=== PATIENT | female | born 1970 | race Caucasian/White ===

== ENCOUNTER 2016-10-01 02:17 | Inpatient (IN) | payer BC, OTHER ==
[~2016-10-01] VITALS: Ht 167.6 cm; Wt 94.1 kg
[2016-10-01 03:00] LABS: BASO % 0.3 % (0.0-1.0); EOS # 0.1 K/mm3 (0.0-0.50); EOS % 0.8 % (0.0-3.0); LARGE UNSTAINED CELL # 0.2 K/mm3 (0.0-0.4); LARGE UNSTAINED CELL % 1.5 % (0.0-4.0); LYMPH # 1.1 K/mm3 (1.5-4.5); LYMPH % 9.2 % (24.0-44.0); MEAN CORPUSCULAR HEMOGLOBIN 31.6 pg (27.0-33.0); MEAN CORPUSCULAR HGB CONC 33.8 g/dl (32.0-36.5); MEAN CORPUSCULAR VOLUME 93.5 fl (80.0-96.0); MONO # 0.4 K/mm3 (0.0-0.8); MONO % 2.9 % (0.0-5.0); NEUTROPHILS # 10.4 K/mm3 (1.8-7.7); NEUTROPHILS % 85.2 % (36.0-66.0); PLATELET COUNT, AUTOMATED 320 k/mm3 (150-450); WHITE BLOOD COUNT 12.2 K/mm3 (4.0-10.0)
[2016-10-01 03:22] LABS: ALBUMIN 3.7 GM/DL (3.2-5.2); ALBUMIN/GLOBULIN RATIO 1.12 (1.00-1.93); ALKALINE PHOSPHATASE 62 U/L (45-117); ALT/SGPT 20 U/L (12-78); AMYLASE 38 U/L (25-115); ANION GAP 9 MEQ/L (8-16); AST/SGOT 11 U/L (15-37); BILIRUBIN,DIRECT < 0.1 MG/DL (0.0-0.2); BILIRUBIN,TOTAL 0.3 MG/DL (0.2-1.0); BLOOD UREA NITROGEN 20 MG/DL (7-18); CALCIUM LEVEL 8.3 MG/DL (8.5-10.1); CARBON DIOXIDE LEVEL 26 MEQ/L (21-32); CHLORIDE LEVEL 110 MEQ/L (98-107); CREATININE FOR GFR 0.82 MG/DL (0.55-1.02); GLOMERULAR FILTRATION RATE > 60.0 (>58); GLUCOSE, FASTING 113 MG/DL (70-105); SODIUM LEVEL 145 MEQ/L (136-145)
[2016-10-01] MEDS ORDERED: HYDROmorphone HCL 1 MG/ML SYRINGE (J1170) As Ordered ONE ×2 (03:34→05:21)
[2016-10-01] MEDS ORDERED: ISOVUE-370 76% 100ML VIAL (Q9967) As Ordered ONE (04:04)
--- NOTE | 2016-10-01 04:50 | REPUSA ---
CLINICAL HISTORY: Abdominal pain. TECHNIQUE: Multiple axial, sagittal and coronal CT images were obtained through the abdomen and pelvi s after administration of intravenous contrast material. COMMENTS: Fluid filled distended stomach. Fluid-filled dilated proximal small bowels. Transition zone in the left lower quadrant. The liver is of uniform attenuation without mass or defect. There is no intra or extrahepatic biliary ductal dilatation. The spleen is normal. The gallbladder is within normal limits. The pancreas is of normal contour and attenuation characteristics. There is no evidence of adrenal mass. Both kidneys demonstrate prompt and equal nephrograms. The kidneys are normal in size, shape and conf iguration. There is no evidence of renal or ureteral mass. No renal or ureteral calculi are identifie d. There is no hydroureter or hydronephrosis. No evidence for appendicitis. There is no evidence of intrinsic or extrinsic bladder mass. There is small amount of free fluid in t he pelvis. Images of the lung bases show no evidence of pleural or parenchymal mass. There are no pleural effusi ons. The bony structures are free of lytic or blastic lesions. Multilevel degenerative changes are seen in volving the thoracolumbar spine. Scattered calcifications are seen involving the aorta and major bran ches compatible with atherosclerosis. IMPRESSION: Partial small bowel obstruction. Transition zone in the left lower quadrant. No bowel perforation or pneumatosis intestinalis. Small amount of free fluid in the pelvis. Thank you for your kind referral of this patient.
[2016-10-01] MEDS ORDERED: METH2.5TA PO (05:16)
[2016-10-01] MEDS ORDERED: FOLI1TAB2 PO (05:16)
[2016-10-01] MEDS ORDERED: ZITHTAB PO (05:16)
[2016-10-01] MEDS ORDERED: ONDANSETRON 4MG/2ML VIAL (J2405) IV PRN (07:00)
[2016-10-01] MEDS ORDERED: ACETAMINOPHEN TAB 650MG DOSE (2X325MG) PO PRN (07:00)
[2016-10-01] MEDS ORDERED: NORCO, ANEXSIA 5/325MG TABLET (HYDROcodone/ACETAMINOPHEN) PO PRN ×2 (07:00)
[2016-10-01] MEDS ORDERED: MORPHINE 4 MG/ML 1ML SYRINGE IV PRN (07:00)
--- NOTE | 2016-10-01 08:24 | EDDOCDS ---
Nurse's Notes [facility] Name: Bolivar Curran Age: 46 yrs Sex: Female : 1970 Arrival Date: 10/01/2016 Time: 02:17 Bed 10 Private MD: Diagnosis: Other and unspecified intestinal obstruction Presentation: 10/01 02:20 Presenting complaint: Patient states: Patient reports abdominal pain in right upper jmb quadrant. Patient reports having abdominal pain for a few hours. Patient denies eating or drinking prior to pain initiation. Risk factors: the patient reports no vaginal bleeding. Adult Sepsis Screening: The patient does not have new or worsening altered mentation. Patient's respiratory rate is less than 22. Systolic blood pressure is greater than 100. Patient has a qSOFA score of 0- Negative Sepsis Screen. Suicide/Homicide risk assessment- the patient denies having any suicidal and/or homicidal ideations and does not present with any other emotional, behavioral or mental health complaints. Status: Patient is not a technical services rep or dependent. Transition of care: patient was not received from another setting of care. 02:20 Acuity: GERTRUDE Level 3 jmb 02:20 Method Of Arrival: Walkin/Carried/Asstd jmb Triage Assessment: 02:24 General: Appears uncomfortable, Behavior is restless. Pain: Location: abdomen Pain [facility] currently is 10 out of 10 on a pain scale. HIV screening NA for this visit Offered previously. Neurological: Level of Consciousness is awake, alert, obeys commands, Oriented to person, place, time. Respiratory: Airway is patent Respiratory effort is even, unlabored, Respiratory pattern is regular, symmetrical. GI: Abdomen is non- distended. Derm: Skin is pink, warm & dry. Musculoskeletal: Range of motion intact in all extremities. 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 folic acid 1 mg Oral tab 1 tab once daily 2. azithromycin 1 gram Oral pack 1 packet just finished 3. methotrexate sodium 15 mg oral tab 1 tab once wkly - PMHx: Psoriasis; Ulcers; - PSHx: partial hysterectomy; - Social history: Smoking status: Patient states former smoker of tobacco. No barriers to communication noted, The patient speaks fluent [place], Speaks appropriately for age. - Family history: Not pertinent. - : The pt / caregiver states he / she is not on anticoagulants. Home medication list is obtained from the patient. - Exposure Risk Screening:: None identified. Screenin:49 Screening information is obtained from the patient. Fall risk: No risks identified. kas2 Assistance ADL's: requires no assistance with activities of daily living. Abuse/DV Screen: The patient / caregiver reports he/she is: not in a situation that causes fear, pain or injury. Nutritional screening: No deficits noted. Advance Directives: Currently, there is no health care proxy. There is no active DNR order. There is no living will. There is no Power of Car Sales Associate. home support is adequate. Assessment: 02:43 General: Appears in no apparent distress, uncomfortable, well nourished, well groomed, kas2 Behavior is appropriate for age, cooperative. Pain: Location: abdomen Pain currently is 9 out of 10 on a pain scale. Neurological: Level of Consciousness is awake, alert, Oriented to person, place, time. Cardiovascular: Capillary refill < 3 seconds Heart tones S1 S2 present Rhythm is sinus rhythm No ectopy. Respiratory: Airway is patent Respiratory effort is even, unlabored, Respiratory pattern is regular, symmetrical, Breath sounds are clear bilaterally. GI: Abdomen is flat, non- distended Bowel sounds present X 4 quads. Abd is soft X 4 quads Abd is tender to palpation X 4 quads. Derm: Skin is intact, is healthy with good turgor, Skin is dry, Skin is pink, warm & dry. Skin temperature is warm. 03:20 General: Patient gone to CT scan via stretcher with tech.. kas2 03:50 General: Patient back from CT scan via stretcher with RN. Resettled in bed. No kas2 complaints of pain at this time. Patient states she is pain free. Appears comfortable. at bedside. Call irby within reach. Will continue to monitor.. 04:45 General: Dr. Hennessy in to talk with patient about results of CT scan.. kas2 05:31 General: RN inserted NG tube 16 Fr at 55 cm. Hooked up to low wall suction. Good return kas2 of yellow colored bile. Patient tolerated procedure well. Sitting up in bed with at bedside. Appears much more comfortable at this time.. 06:30 General: Patient sitting up in bed at this time with at bedside. No apparent kas2 distress. Patient states she is comfortable. Airway is patent. Respiratory pattern is even and unlabored. NG tube remains in place and is to low wall suction at this time. Call irby within reach. Will continue to monitor.. 07:03 General: Appears in no apparent distress, Behavior is appropriate for age, cooperative. pml Pain: Pain currently is 5 out of 10 on a pain scale. Neurological: Level of Consciousness is awake, alert, Oriented to person, place, time. Cardiovascular: Capillary refill < 3 seconds. Respiratory: Airway is patent Respiratory effort is even, unlabored. GI: Abdomen is non- distended NGT in place, to suction. draining yellow bile. Derm: Skin is pink, warm & dry. 08:21 General: Appears in no apparent distress, Behavior is appropriate for age, cooperative. pml Pain: Location: abdomen Pain currently is 5 out of 10 on a pain scale. Neurological: Level of Consciousness is awake, alert, Oriented to person, place, time. Cardiovascular: Capillary refill < 3 seconds Rhythm is sinus rhythm No ectopy. GI: Abdomen is flat, non- distended NGT in place, to suction. Derm: Skin is pink, warm & dry. Vital Signs: 02:25 BP 156 / 72; Pulse 67; Resp 18; Temp 97.6(O); Pulse Ox 99% on R/A; Weight 92.53 kg (R); [facility] Height 5 ft. 6 in. (167.64 cm) (R); 04:16 BP 138 / 68; Pulse 65; Resp 18; Pulse Ox 99% on R/A; Pain 0/10; kas2 06:32 BP 149 / 74; Pulse 68; Resp 20; Temp 98.1(O); Pulse Ox 99% on R/A; Pain 0/10; kas2 08:15 BP 129 / 73; Pulse 62; Resp 18; Temp 99.3(O); Pulse Ox 98% on R/A; Pain 3/10; jrd 02:25 Body Mass Index 32.93 (92.53 kg, 167.64 cm) [facility] Vitals: 02:25 Log In Time: October 01, 2016 at 02:19. [facility] ED Course: 02:18 Patient visited by Jordyn Walters, Reg. hs2 02:18 Patient moved to Waiting hs2 02:21 Triage Initiated b 02:28 Krystle Constantino RN is Primary Nurse. jmb 02:28 Patient moved to 10 jmb 02:31 Patient visited by Krystle Constantino RN. kas2 02:52 Jono Hennessy DO is Attending Physician. cs11 02:52 Patient visited by Jono Hennessy DO. cs11 02:53 CBC with Diff Sent. kas2 02:53 MED Profile Sent. kas2 02:53 Liver Profile Sent. kas2 02:53 Amylase Sent. kas2 02:53 Lipase Sent. kas2 02:53 Inserted saline lock: 20 gauge in left antecubital area and blood collected. The kas2 patient tolerated the procedure well. No procedures done that require assistance. 03:27 Patient visited by Krystle Constantino RN. kas2 03:46 Patient visited by Krystle Constantino RN. kas2 04:16 Patient visited by Krystle Constantino RN. kas2 04:39 [facility] Payment Agreement was scanned into [employer] and attached to record. pm4 04:50 CT ABD & PELVIS: IV Contrast Only Returned. EDMS 05:17 Patient visited by Kyrstle Constantino RN. kas2 05:24 NGT inserted 18 Fr. via right nare. Placement verified. Returned gastric contents. to nn1 intermittent suction. Returned gastric contents. Patient tolerated well. 05:34 Patient visited by Krystle Constantino RN. kas2 06:00 Patient visited by Krystle Constantino RN. kas2 06:33 Patient visited by Krystle Constantino RN. kas2 06:41 Deacon Clayton MD is Hospitalizing Provider. cs11 07:03 The patient / caregiver is instructed regarding the plan of care and ED course. Patient pml has correct armband on for positive identification. Placed in gown. Bed in low position. Call light in reach. Side rails up X2. 07:05 Patient visited by Falguni Gonzales RN. pml 07:09 Primary Nurse role handed off by Krystle Constantino RN deg 07:40 T-Sheet-- Draft Copy was scanned into [employer] and attached to record. seh 08:15 Patient visited by Naren Bearden PCA. ismael 08:16 Patient visited by Naren Bearden PCA. ismael Administered Medications: 03:45 Drug: NS 0.9% 1000 ml [sodium chloride 0.9 % intravenous solution] Route: IV; Rate: kas2 bolus; Site: left antecubital; 03:46 Drug: Dilaudid - HYDROmorphone 1 mg [hydromorphone 1 mg/mL injection syringe (1 mL)] kas2 Route: IVP; Site: left antecubital; 04:16 Follow up: BP 138 / 68; Pulse 65 bpm; Resp 18 bpm; Pulse Ox 99% RA; Pain 0/10 Adult; kas2 Response: No Adverse Reaction; Pain is decreased 05:27 Drug: Dilaudid - HYDROmorphone 0.5 mg [hydromorphone 1 mg/mL injection syringe (0.5 kas2 mL)] Route: IVP; Site: left antecubital; 07:00 Follow up: Response: Pain is decreased pml Order Results: Lab Order: CBC with Diff; SPEC'M 10/01/16 02:42 Test: WHITE BLOOD COUNT; Value: 12.2; Range: 4.0-10.0; Abnormal: Above high normal; Units: K/mm3; Status: F Test: RED BLOOD COUNT; Value: 4.86; Range: 4.00-5.40; Units: M/mm3; Status: F Test: HEMOGLOBIN; Value: 15.4; Range: 12.0-16.0; Units: g/dl; Status: F Test: HEMATOCRIT; Value: 45.4; Range: 36.0-47.0; Units: %; Status: F Test: MEAN CORPUSCULAR VOLUME; Value: 93.5; Range: 80.0-96.0; Units: fl; Status: F Test: MEAN CORPUSCULAR HEMOGLOBIN; Value: 31.6; Range: 27.0-33.0; Units: pg; Status: F Test: MEAN CORPUSCULAR HGB CONC; Value: 33.8; Range: 32.0-36.5; Units: g/dl; Status: F Test: RED CELL DISTRIBUTION WIDTH; Value: 13.0; Range: 11.5-14.5; Units: %; Status: F Test: PLATELET COUNT, AUTOMATED; Value: 320; Range: 150-450; Units: k/mm3; Status: F Test: NEUTROPHILS %; Value: 85.2; Range: 36.0-66.0; Abnormal: Above high normal; Units: %; Status: F Test: LYMPH %; Value: 9.2; Range: 24.0-44.0; Abnormal: Below low normal; Units: %; Status: F Test: MONO %; Value: 2.9; Range: 0.0-5.0; Units: %; Status: F Test: EOS %; Value: 0.8; Range: 0.0-3.0; Units: %; Status: F Test: BASO %; Value: 0.3; Range: 0.0-1.0; Units: %; Status: F Test: LARGE UNSTAINED CELL %; Value: 1.5; Range: 0.0-4.0; Units: %; Status: F Test: NEUTROPHILS #; Value: 10.4; Range: 1.8-7.7; Abnormal: Above high normal; Units: K/mm3; Status: F Test: LYMPH #; Value: 1.1; Range: 1.5-4.5; Abnormal: Below low normal; Units: K/mm3; Status: F Test: MONO #; Value: 0.4; Range: 0.0-0.8; Units: K/mm3; Status: F Test: EOS #; Value: 0.1; Range: 0.0-0.50; Units: K/mm3; Status: F Test: BASO #; Value: 0.0; Range: 0.0-0.2; Units: K/mm3; Status: F Test: LARGE UNSTAINED CELL #; Value: 0.2; Range: 0.0-0.4; Units: K/mm3; Status: F Lab Order: MED Profile; SPEC'M 10/01/16 02:42 Test: GLUCOSE, FASTING; Value: 113; Range: 70-105; Abnormal: Above high normal; Units: MG/DL; Status: F Test: BLOOD UREA NITROGEN; Value: 20; Range: 7-18; Abnormal: Above high normal; Units: MG/DL; Status: F Test: CREATININE FOR GFR; Value: 0.82; Range: 0.55-1.02; Units: MG/DL; Status: F Test: GLOMERULAR FILTRATION RATE; Value: > 60.0; Range: >58; Status: F Test: SODIUM LEVEL; Value: 145; Range: 136-145; Units: MEQ/L; Status: F Test: POTASSIUM SERUM; Value: 4.0; Range: 3.5-5.1; Units: MEQ/L; Status: F Test: CHLORIDE LEVEL; Value: 110; Range: 98-107; Abnormal: Above high normal; Units: MEQ/L; Status: F Test: CARBON DIOXIDE LEVEL; Value: 26; Range: 21-32; Units: MEQ/L; Status: F Test: ANION GAP; Value: 9; Range: 8-16; Units: MEQ/L; Status: F Test: CALCIUM LEVEL; Value: 8.3; Range: 8.5-10.1; Abnormal: Below low normal; Units: MG/DL; Status: F Test Note: ; Units are mL/min/1.73 m2 Chronic Kidney Disease Staging per NKF: Stage I & II GFR >=60 Normal to Mildly Decreased Stage III GFR 30-59 Moderately Decreased Stage IV GFR 15-29 Severely Decreased Stage V GFR <15 Very Little GFR Left ESRD GFR <15 on PAYABLE PROCESSOR Lab Order: Liver Profile; SPEC'M 10/01/16 02:42 Test: AST/SGOT; Value: 11; Range: 15-37; Abnormal: Below low normal; Units: U/L; Status: F Test: ALT/SGPT; Value: 20; Range: 12-78; Units: U/L; Status: F Test: ALKALINE PHOSPHATASE; Value: 62; Range: 45-117; Units: U/L; Status: F Test: BILIRUBIN,TOTAL; Value: 0.3; Range: 0.2-1.0; Units: MG/DL; Status: F Test: BILIRUBIN,DIRECT; Value: < 0.1; Range: 0.0-0.2; Units: MG/DL; Status: F Test: TOTAL PROTEIN; Value: 7.0; Range: 6.4-8.2; Units: GM/DL; Status: F Test: ALBUMIN; Value: 3.7; Range: 3.2-5.2; Units: GM/DL; Status: F Test: ALBUMIN/GLOBULIN RATIO; Value: 1.12; Range: 1.00-1.93; Status: F Lab Order: Amylase; SPEC'M 10/01/16 02:42 Test: AMYLASE; Value: 38; Range: 25-115; Units: U/L; Status: F Lab Order: Lipase; SPEC'M 10/01/16 02:42 Test: LIPASE; Value: 131; Range: 73-393; Units: U/L; Status: F Lab Order: Urinalysis; SPEC'M 10/01/16 05:24 Test: APPEARANCE, URINE; Value: CLEAR; Range: CLEAR; Status: F Test: COLOR, URINE; Value: YELLOW; Range: YELLOW; Status: F Test: PH,URINE; Value: 6.0; Range: 5.0-9.0; Units: UNITS; Status: F Test: SPECIFIC GRAVITY URINE AUTO; Value: >1.060; Range: 1.002-1.035; Abnormal: Above high normal; Status: F Test: PROTEIN, URINE AUTO; Value: NEGATIVE; Range: NEGATIVE; Units: mg/dL; Status: F Test: GLUCOSE, URINE (UA) AUTO; Value: NEGATIVE; Range: NEGATIVE; Units: mg/dL; Status: F Test: KETONE, URINE AUTO; Value: NEGATIVE; Range: NEGATIVE; Units: mg/dL; Status: F Test: UROBILINOGEN, URINE AUTO; Value: 0.2; Range: 0.0-2.0; Units: mg/dL; Status: F Test: BILIRUBIN, URINE AUTO; Value: NEGATIVE; Range: NEGATIVE; Status: F Test: NITRITE, URINE AUTO; Value: NEGATIVE; Range: NEGATIVE; Status: F Test: LEUKOCYTE ESTERASE, URINE AUTO; Value: NEGATIVE; Range: NEGATIVE; Status: F Test: BLOOD, URINE BLOOD; Value: NEGATIVE; Range: NEGATIVE; Status: F Test: WBC, URINE AUTO; Value: 0; Range: 0-3; Units: /HPF; Status: F Test: RBC, URINE AUTO; Value: 2; Range: 0-3; Units: /HPF; Status: F Test: BACTERIA, URINE AUTO; Value: 1+; Range: NEGATIVE; Abnormal: Above high normal; Status: F Test: SQUAMOUS EPITHELIAL CELL UR AU; Value: 7; Range: 0-6; Units: /HPF; Status: F Test: MUCUS, URINE; Value: SMALL; Range: NEGATIVE; Status: F Test: HYALINE CAST, URINE AUTO; Value: 0; Range: 0-1; Units: /LPF; Status: F Radiology Order: CT ABD & PELVIS: IV Contrast Only Test: CT ABD & PELVIS: IV Contrast Only REASON FOR EXAMINATION: Abdomen Pain; ; CLINICAL HISTORY: Abdominal pain.; TECHNIQUE: Multiple axial, sagittal and coronal CT images were obtained through the abdomen and pelvi; s after administration of intravenous contrast material.; COMMENTS:; Fluid filled distended stomach.; Fluid-filled dilated proximal small bowels.; Transition zone in the left lower quadrant.; The liver is of uniform attenuation without mass or defect. There is no intra or extrahepatic biliary; ductal dilatation. The spleen is normal. The gallbladder is within normal limits. The pancreas is of; normal contour and attenuation characteristics. There is no evidence of adrenal mass.; Both kidneys demonstrate prompt and equal nephrograms. The kidneys are normal in size, shape and conf; iguration. There is no evidence of renal or ureteral mass. No renal or ureteral calculi are identifie; d. There is no hydroureter or hydronephrosis.; No evidence for appendicitis.; There is no evidence of intrinsic or extrinsic bladder mass. There is small amount of free fluid in t; he pelvis.; Images of the lung bases show no evidence of pleural or parenchymal mass. There are no pleural effusi; ons.; The bony structures are free of lytic or blastic lesions. Multilevel degenerative changes are seen in; volving the thoracolumbar spine. Scattered calcifications are seen involving the aorta and major bran; ches compatible with atherosclerosis.; IMPRESSION:; Partial small bowel obstruction.; Transition zone in the left lower quadrant.; No bowel perforation or pneumatosis intestinalis.; Small amount of free fluid in the pelvis.; Thank you for your kind referral of this patient.; ; Outcome: 06:42 Decision to Hospitalize by Provider. cs11 08:21 Discharge Assessment: Patient awake, alert and oriented x 3. No cognitive and/or pml functional deficits noted. Patient verbalized understanding of disposition instructions. patient administered narcotics - yes. Patient was admitted to the hospital or transferred to another facility. The following High Risk Discharge criteria are identified: None. Admitted to Pediatrics accompanied by tech, via wheelchair, with chart. Condition: stable. CT Study completed. Admission hand-off: Report called to [facility]. Property :Personal belongings accompany Pt. 08:23 Patient left the ED. pml Signatures: Dispatcher [employer] EDMS Maribell Barrios, Data Assistant Unit deg Falguni GonzalesRN RN pml Jono Hennessy, DO cs11 Shadi Daniels RN RN jmb Naren Bearden, PLASTER AND STUCCO WORKER PLASTER AND STUCCO WORKER jrd Ragini Tyson RN RN nn1 Jordyn Walters, Reg Reg hs2 Krystle Constantino RN RN [facility]2 Guerita Marin se Herbert Diaz, Reg Reg pm4 Corrections: (The following items were deleted from the chart) 08:16 08:15 BP 129 / 73; Pulse 58bpm; Resp 16bpm; Pulse Ox 98% RA; Temp 99.3F Oral; Pain jrd 10; jrd MTDD
--- NOTE | 2016-10-01 08:24 | EDDOCDS ---
Physician Documentation [facility] Name: Bolivar Curran Age: 46 yrs Sex: Female : 1970 Arrival Date: 10/01/2016 Time: 02:17 Bed 10 Private MD: Disposition: 10/01/16 06:42 Hospitalization ordered by Deacon Clayton for Inpatient Admission. Preliminary diagnosis is Other and unspecified intestinal obstruction. - Bed requested for M PED. - Status is Inpatient Admission. pml - Condition is Stable. - Problem is new. - Symptoms have improved. Historical: - Allergies: No known drug Allergies; - Home Meds: 1. folic acid 1 mg Oral tab 1 tab once daily 2. azithromycin 1 gram Oral pack 1 packet just finished 3. methotrexate sodium 15 mg oral tab 1 tab once wkly - PMHx: Psoriasis; Ulcers; - PSHx: partial hysterectomy; - Social history: Smoking status: Patient states former smoker of tobacco. No barriers to communication noted, The patient speaks fluent Albanian, Speaks appropriately for age. - Family history: Not pertinent. - : The pt / caregiver states he / she is not on anticoagulants. Home medication list is obtained from the patient. - Exposure Risk Screening:: None identified. MANAGER DOCUMENTATION: 10/01 02:25 LMP N/A - Hysterectomy [facility] Vital Signs: 02:25 BP 156 / 72; Pulse 67; Resp 18; Temp 97.6(O); Pulse Ox 99% on R/A; Weight 92.53 kg / jmb 203.99 lbs (R); Height 5 ft. 6 in. (167.64 cm) (R); 04:16 BP 138 / 68; Pulse 65; Resp 18; Pulse Ox 99% on R/A; Pain 0/10; kas2 06:32 BP 149 / 74; Pulse 68; Resp 20; Temp 98.1(O); Pulse Ox 99% on R/A; Pain 0/10; kas2 08:15 BP 129 / 73; Pulse 62; Resp 18; Temp 99.3(O); Pulse Ox 98% on R/A; Pain 3/10; jrd 02:25 Body Mass Index 32.93 (92.53 kg, 167.64 cm) [facility] MDM: 02:52 IV Saline Lock ordered. cs11 02:53 CBC with Diff Ordered. EDMS 02:53 MED Profile Ordered. EDMS 02:53 Liver Profile Ordered. EDMS 02:53 Amylase Ordered. EDMS 02:53 Lipase Ordered. EDMS 02:53 Urinalysis Ordered. EDMS 02:53 Urine Culture Ordered. EDMS 03:32 NS 0.9% 1000 ml IV at bolus once ordered. cs11 03:32 Dilaudid - HYDROmorphone 1 mg IVP once ordered. cs11 03:38 CBC with Diff Reviewed. cs11 03:38 MED Profile Reviewed. cs11 03:38 Liver Profile Reviewed. cs11 03:38 Amylase Reviewed. cs11 03:38 Lipase Reviewed. cs11 03:58 CT ABD & PELVIS: IV Contrast Only Ordered. EDMS 04:17 Financial registration complete. pm4 04:39 [facility] Payment Agreement was scanned into [employer] and attached to record. pm4 04:53 NG/OG Tube 18Fr to L.I.S. with hourly monitoring for placement ordered. cs11 05:00 BED REQUEST+ADM ordered. EDMS 05:05 Dilaudid - HYDROmorphone 0.5 mg IVP once ordered. cs11 07:01 Admission / Observation Status ordered. EDMS 07:01 NPO DIET ordered. EDMS 07:40 T-Sheet-- Draft Copy was scanned into [employer] and attached to record. [facility] Administered Medications: 03:45 Drug: NS 0.9% 1000 ml [sodium chloride 0.9 % intravenous solution] Route: IV; Rate: kas2 bolus; Site: left antecubital; 03:46 Drug: Dilaudid - HYDROmorphone 1 mg [hydromorphone 1 mg/mL injection syringe (1 mL)] kas2 Route: IVP; Site: left antecubital; 04:16 Follow up: BP 138 / 68; Pulse 65 bpm; Resp 18 bpm; Pulse Ox 99% RA; Pain 0/10 Adult; kas2 Response: No Adverse Reaction; Pain is decreased 05:27 Drug: Dilaudid - HYDROmorphone 0.5 mg [hydromorphone 1 mg/mL injection syringe (0.5 kas2 mL)] Route: IVP; Site: left antecubital; 07:00 Follow up: Response: Pain is decreased pml Signatures: Dispatcher [employer] EDMO Falguni Gonzales RN Jono Benitez, DO cs11 Shadi DanielsRN Allie Ram RN GANESH Marin, Guerita Herbert Gusman, Reg Reg pm4 Krystle Constantino RN kas2 The chart was reviewed and I authenticate all verbal orders and agree with the evaluation and treatment provided.Attachments: 04:39 [facility] Payment Agreement pm4 07:40 T-Sheet-- Draft Copy [facility] MTDD
[2016-10-01 08:35] VITALS: BP 158/84
[2016-10-01] MEDS: LR 1,000 ML IV SCH ×3 (09:19→22:55)
[2016-10-01] MEDS: ENOXAPARIN 40 MG/0.4 ML SYRINGE (J1650) SC SCH (09:20)
[2016-10-01] MEDS: PANTOPRAZOLE 40MG INJ (PROTONIX) (C9113) IV SCH (09:33)
--- NOTE | 2016-10-01 14:08 | HPE ---
DATE OF ADMISSION: 10/01/2016 CHIEF COMPLAINT: Abdominal pain. HISTORY OF PRESENT ILLNESS: Ms. Curran is a 46-year-old female who presented herself to the emergency department late last night with complaints of about a 2-day history of ongoing midepigastric pain. The patient reports a nearly chronic history of epigastric and periumbilical pain that comes on and off. Initially, she was being treated for possibly gastritis with omeprazole, this worsened. Last month, her primary care doctor did some serology, which turned out to be positive for Helicobacter pylori (H pylori), was treated with 2 weeks of antibiotics. She reports transient improvement of the pain and discomfort. She is seeing someone to do an upper endoscopy. This current episode started evening; the patient had the same crampiness evening while at work. By the following morning, this improved. At about the afternoon Monday, started coming back, getting worse and steady. She had one episode of vomiting. She denies any sick contacts. She denies any prior episodes of similar symptoms. No prior episodes of any mechanical blockage. Due to the unrelenting pain, she presented herself to the emergency department, was described by the emergency room physician as was in severe pain, writhing in pain when she arrived. She did have a regular bowel movement Monday morning. ALLERGIES: No known drug allergies. HOME MEDICATIONS: - folic acid 1 mg tablet once daily - azithromycin one packet which she just finished - methotrexate 50 mg tablet one tablet once weekly PAST MEDICAL HISTORY: Includes psoriasis, a suspicion for gastritis. PAST SURGICAL HISTORY: Includes a partial hysterectomy with vaginal sling. SOCIAL HISTORY: The patient denies smoking, alcohol use or recreational drug use. FAMILY HISTORY: Not pertinent. EXPOSURE HISTORY: Denies any sick contacts or overseas travel. REVIEW OF SYSTEMS: The patient reports chronic intermittent upper quadrant pain. Denies any ongoing associated weight loss. Denies anorexia. The patient denies any chronic headaches, seizures, strokes. She denies any problems with vision or hearing. Denies any problems with swallowing. Denies hoarseness of her voice. She denies any neck pains. She denies any chest pains, palpitations, paroxysmal nocturnal dyspnea, orthopnea. The patient denies any shortness of breath or wheezing. Gastrointestinal symptoms enumerated in the history of the present illness. The patient denies dysuria, hematuria, nocturia. She denies any history of diabetes. Denies polydipsia, polyphagia, polyuria. Denies thyroid problems. She denies any bleeding or clotting disorder. She denies any severe psychiatric impairment. EXAMINATION: Vital signs on arrival at 2 o'clock in the morning, blood pressure 156/72, pulse rate of 67, respiratory rate of 18, temperature of 97.6, pulse oximetry reading 99% on room air. Weight is 92.5 kg, height 167 cm, body mass index (BMI) 32.9. Patient seen, a nasogastric tube has been placed, seems to be adequate placement. Only a small amount in the cannister, reportedly about 400 mL were emptied out initially on insertion. She is mildly obese. Skin is warm and dry. Lips appear mildly dry. She is normocephalic, atraumatic, has a pink palpebral conjunctivae. Anicteric sclerae. Neck is short but supple. No obvious thyromegaly. No chest wall abnormalities. Lung sounds are clear to auscultation bilaterally. No wheezing appreciated. Heart: Rate and rhythm are regular with no murmurs. Abdomen is mildly rounded but soft, very minimally distended, if at all. She does have active bowel sounds. Tested the nasogastric tube, seems to be in adequate position. Mild tenderness over the epigastric area. No rebound or guarding. No hepatosplenomegaly. No umbilical or groin herniations appreciated. No extremity edema appreciated. No deformities. LABORATORY: White cell count 12.2, hemoglobin 15.4, hematocrit 45.4, plate count is 320, neutrophils are 85%. Chemistry: Sodium 145, potassium 4.0, chloride is 110, CO2 is 26, BUN of 20, creatinine 0.8, glucose is 113. Liver function tests (LFTs) are normal. Albumin is 3.7, amylase 38, lipase of 131. CT of the abdomen and pelvis was performed. This was done with contrast, shows partial small bowel obstruction, transition zone in the left lower quadrant. No bowel perforation or pneumatosis intestinalis, small amount of free fluid in the pelvis. IMPRESSION: Small bowel obstruction, probably secondary to adhesions from her previous surgery. No signs or symptoms of threatened bowel. The patient improved with nasogastric tube decompression. PLAN: Continue with IV fluid hydration, continue with nasogastric tube decompression. I had a long talk with the and the patient regarding what mechanical bowel obstruction means and how this is treated. Normally bowel decompression for the next couple of days and see if this resolves by itself. This is her first bout of bowel obstruction. She has a high chance of this resolving by itself. Right now, there is no signs of threatened bowel, so no urgency to go in and do lysis of adhesions. She also gives a history of possible chronic gastritis. I will place her on some IV Protonix. I reviewed her medication; she is on methotrexate for psoriasis, no other medications reported except for the folic acid. We will do serial examinations and recheck her labs as well as an x-ray in the morning.
[2016-10-01 16:00] VITALS: BP 132/83
[2016-10-01 20:00] VITALS: BP 126/69
[2016-10-02 04:00] VITALS: BP 132/85
[2016-10-02] MEDS: LR 1,000 ML IV SCH (04:17)
[2016-10-02 07:05] LABS: BASO % 0.6 % (0.0-1.0); EOS # 0.3 K/mm3 (0.0-0.50); EOS % 2.8 % (0.0-3.0); LARGE UNSTAINED CELL # 0.3 K/mm3 (0.0-0.4); LARGE UNSTAINED CELL % 3.2 % (0.0-4.0); LYMPH # 1.8 K/mm3 (1.5-4.5); LYMPH % 18.9 % (24.0-44.0); MEAN CORPUSCULAR HEMOGLOBIN 31.6 pg (27.0-33.0); MEAN CORPUSCULAR HGB CONC 33.3 g/dl (32.0-36.5); MONO # 0.4 K/mm3 (0.0-0.8); MONO % 4.5 % (0.0-5.0); NEUTROPHILS # 6.7 K/mm3 (1.8-7.7); PLATELET COUNT, AUTOMATED 290 k/mm3 (150-450); RED CELL DISTRIBUTION WIDTH 13.1 % (11.5-14.5); WHITE BLOOD COUNT 9.5 K/mm3 (4.0-10.0)
[2016-10-02 07:14] LABS: ANION GAP 7 MEQ/L (8-16); BLOOD UREA NITROGEN 13 MG/DL (7-18); CARBON DIOXIDE LEVEL 27 MEQ/L (21-32); CHLORIDE LEVEL 110 MEQ/L (98-107); CREATININE FOR GFR 0.62 MG/DL (0.55-1.02); GLOMERULAR FILTRATION RATE > 60.0 (>58); GLUCOSE, FASTING 86 MG/DL (70-105); POTASSIUM SERUM 3.6 MEQ/L (3.5-5.1); SODIUM LEVEL 144 MEQ/L (136-145)
[2016-10-02 08:00] VITALS: BP 138/94
--- NOTE | 2016-10-02 09:24 | REP ---
Clinical: Follow up small bowel obstruction. Technique: Upright view of the chest with supine and upright views of the abdomen and pelvis. Findings: Frontal upright view of the chest demonstrates no acute cardiopulmonary process or free air below the diaphragm to suspect pneumoperitoneum. Nasogastric tube extends into the left upper quadrant. Supine and upright views of the abdomen and pelvis demonstrate nonspecific bowel gas pattern without obstruction or perforation. No organomegaly. No abnormal calcifications. Skeletal structures normal for age. Impression: Nonspecific bowel gas pattern. Signed by Gonzales Blackmon MD 10/02/2016 09:15 A
[2016-10-02] MEDS: PANTOPRAZOLE 40MG INJ (PROTONIX) (C9113) IV SCH (09:41)
[2016-10-02] MEDS: ENOXAPARIN 40 MG/0.4 ML SYRINGE (J1650) SC SCH (09:41)
[2016-10-02 12:00] VITALS: BP 156/85
[2016-10-02 16:00] VITALS: BP 128/78
[2016-10-02 20:00] VITALS: BP 131/59
[2016-10-03 04:00] VITALS: BP 120/74
[2016-10-03 07:03] LABS: BASO % 0.5 % (0.0-1.0); EOS # 0.2 K/mm3 (0.0-0.50); LARGE UNSTAINED CELL # 0.3 K/mm3 (0.0-0.4); LARGE UNSTAINED CELL % 3.4 % (0.0-4.0); LYMPH # 1.2 K/mm3 (1.5-4.5); LYMPH % 14.6 % (24.0-44.0); MEAN CORPUSCULAR HEMOGLOBIN 31.9 pg (27.0-33.0); MEAN CORPUSCULAR HGB CONC 33.7 g/dl (32.0-36.5); MEAN CORPUSCULAR VOLUME 94.4 fl (80.0-96.0); MONO # 0.4 K/mm3 (0.0-0.8); MONO % 5.3 % (0.0-5.0); NEUTROPHILS # 5.9 K/mm3 (1.8-7.7); NEUTROPHILS % 73.3 % (36.0-66.0); PLATELET COUNT, AUTOMATED 258 k/mm3 (150-450); RED CELL DISTRIBUTION WIDTH 13.1 % (11.5-14.5); WHITE BLOOD COUNT 8.1 K/mm3 (4.0-10.0)
[2016-10-03 07:11] LABS: ANION GAP 7 MEQ/L (8-16); BLOOD UREA NITROGEN 11 MG/DL (7-18); CALCIUM LEVEL 8.4 MG/DL (8.5-10.1); CARBON DIOXIDE LEVEL 28 MEQ/L (21-32); CHLORIDE LEVEL 108 MEQ/L (98-107); CREATININE FOR GFR 0.64 MG/DL (0.55-1.02); GLOMERULAR FILTRATION RATE > 60.0 (>58); GLUCOSE, FASTING 86 MG/DL (70-105); POTASSIUM SERUM 4.1 MEQ/L (3.5-5.1); SODIUM LEVEL 143 MEQ/L (136-145)
[2016-10-03 08:00] VITALS: BP 114/68
--- NOTE | 2016-10-03 09:24 | EDDOCDS ---
Physician Documentation [facility] Name: Bolivar Curran Age: 46 yrs Sex: Female : 1970 Arrival Date: 10/01/2016 Time: 02:17 Bed 10 Private MD: Disposition: 10/01/16 06:42 Hospitalization ordered by Deacon Clayton for Inpatient Admission. Preliminary diagnosis is Other and unspecified intestinal obstruction. - Bed requested for M PED. - Status is Inpatient Admission. pml - Condition is Stable. - Problem is new. - Symptoms have improved. Historical: - Allergies: No known drug Allergies; - Home Meds: 1. folic acid 1 mg Oral tab 1 tab once daily 2. azithromycin 1 gram Oral pack 1 packet just finished 3. methotrexate sodium 15 mg oral tab 1 tab once wkly - PMHx: Psoriasis; Ulcers; - PSHx: partial hysterectomy; - Social history: Smoking status: Patient states former smoker of tobacco. No barriers to communication noted, The patient speaks fluent [place], Speaks appropriately for age. - Family history: Not pertinent. - : The pt / caregiver states he / she is not on anticoagulants. Home medication list is obtained from the patient. - Exposure Risk Screening:: None identified. [employer]: 10/01 02:25 LMP N/A - Hysterectomy [facility] Vital Signs: 02:25 BP 156 / 72; Pulse 67; Resp 18; Temp 97.6(O); Pulse Ox 99% on R/A; Weight 92.53 kg / jmb 203.99 lbs (R); Height 5 ft. 6 in. (167.64 cm) (R); 04:16 BP 138 / 68; Pulse 65; Resp 18; Pulse Ox 99% on R/A; Pain 0/10; kas2 06:32 BP 149 / 74; Pulse 68; Resp 20; Temp 98.1(O); Pulse Ox 99% on R/A; Pain 0/10; kas2 08:15 BP 129 / 73; Pulse 62; Resp 18; Temp 99.3(O); Pulse Ox 98% on R/A; Pain 3/10; jrd 02:25 Body Mass Index 32.93 (92.53 kg, 167.64 cm) [facility] MDM: 02:52 IV Saline Lock ordered. cs11 02:53 CBC with Diff Ordered. EDMS 02:53 MED Profile Ordered. EDMS 02:53 Liver Profile Ordered. EDMS 02:53 Amylase Ordered. EDMS 02:53 Lipase Ordered. EDMS 02:53 Urinalysis Ordered. EDMS 02:53 Urine Culture Ordered. EDMS 03:32 NS 0.9% 1000 ml IV at bolus once ordered. cs11 03:32 Dilaudid - HYDROmorphone 1 mg IVP once ordered. cs11 03:38 CBC with Diff Reviewed. cs11 03:38 MED Profile Reviewed. cs11 03:38 Liver Profile Reviewed. cs11 03:38 Amylase Reviewed. cs11 03:38 Lipase Reviewed. cs11 03:58 CT ABD & PELVIS: IV Contrast Only Ordered. EDMS 04:17 Financial registration complete. pm4 04:39 [facility] Payment Agreement was scanned into [employer] and attached to record. pm4 04:53 NG/OG Tube 18Fr to L.I.S. with hourly monitoring for placement ordered. cs11 05:00 BED REQUEST+ADM ordered. EDMS 05:05 Dilaudid - HYDROmorphone 0.5 mg IVP once ordered. cs11 07:01 Admission / Observation Status ordered. EDMS 07:01 NPO DIET ordered. EDMS 07:40 T-Sheet-- Draft Copy was scanned into [employer] and attached to record. [facility] 13:08 Radiology Report was scanned into [employer] and attached to record. gb Administered Medications: 03:45 Drug: NS 0.9% 1000 ml [sodium chloride 0.9 % intravenous solution] Route: IV; Rate: kas2 bolus; Site: left antecubital; 03:46 Drug: Dilaudid - HYDROmorphone 1 mg [hydromorphone 1 mg/mL injection syringe (1 mL)] kas2 Route: IVP; Site: left antecubital; 04:16 Follow up: BP 138 / 68; Pulse 65 bpm; Resp 18 bpm; Pulse Ox 99% RA; Pain 0/10 Adult; kas2 Response: No Adverse Reaction; Pain is decreased 05:27 Drug: Dilaudid - HYDROmorphone 0.5 mg [hydromorphone 1 mg/mL injection syringe (0.5 kas2 mL)] Route: IVP; Site: left antecubital; 07:00 Follow up: Response: Pain is decreased pml Signatures: Dispatcher [employer] EDMS Rachel Arthur, Reg Reg gb Falguni GonzalesRN RN pml Jono Hennessy, DO cs11 Shadi Daniels RN RN jmb Abare, Karen, RN RN kaa Hoffert, Guerita seHerbert Gusman, Reg Reg pm4 Krystle Constantino RN kas2 The chart was reviewed and I authenticate all verbal orders and agree with the evaluation and treatment provided.Attachments: 04:39 [facility] Payment Agreement pm4 07:40 T-Sheet-- Draft Copy [facility] Chart Complete MTDD
--- NOTE | 2016-10-03 09:24 | EDDOCDS ---
Nurse's Notes [facility] Name: Bolivar Curran Age: 46 yrs Sex: Female : 1970 Arrival Date: 10/01/2016 Time: 02:17 Bed 10 Private MD: Diagnosis: Other and unspecified intestinal obstruction Presentation: 10/01 02:20 Presenting complaint: Patient states: Patient reports abdominal pain in right upper jmb quadrant. Patient reports having abdominal pain for a few hours. Patient denies eating or drinking prior to pain initiation. Risk factors: the patient reports no vaginal bleeding. Adult Sepsis Screening: The patient does not have new or worsening altered mentation. Patient's respiratory rate is less than 22. Systolic blood pressure is greater than 100. Patient has a qSOFA score of 0- Negative Sepsis Screen. Suicide/Homicide risk assessment- the patient denies having any suicidal and/or homicidal ideations and does not present with any other emotional, behavioral or mental health complaints. Status: Patient is not a service advocate contact or dependent. Transition of care: patient was not received from another setting of care. 02:20 Acuity: GERTRUDE Level 3 jmb 02:20 Method Of Arrival: Walkin/Carried/Asstd jmb Triage Assessment: 02:24 General: Appears uncomfortable, Behavior is restless. Pain: Location: abdomen Pain [facility] currently is 10 out of 10 on a pain scale. HIV screening NA for this visit Offered previously. Neurological: Level of Consciousness is awake, alert, obeys commands, Oriented to person, place, time. Respiratory: Airway is patent Respiratory effort is even, unlabored, Respiratory pattern is regular, symmetrical. GI: Abdomen is non- distended. Derm: Skin is pink, warm & dry. Musculoskeletal: Range of motion intact in all extremities. 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 folic acid 1 mg Oral tab 1 tab once daily 2. azithromycin 1 gram Oral pack 1 packet just finished 3. methotrexate sodium 15 mg oral tab 1 tab once wkly - PMHx: Psoriasis; Ulcers; - PSHx: partial hysterectomy; - Social history: Smoking status: Patient states former smoker of tobacco. No barriers to communication noted, The patient speaks fluent Maldivian, Speaks appropriately for age. - Family history: Not pertinent. - : The pt / caregiver states he / she is not on anticoagulants. Home medication list is obtained from the patient. - Exposure Risk Screening:: None identified. Screenin:49 Screening information is obtained from the patient. Fall risk: No risks identified. kas2 Assistance ADL's: requires no assistance with activities of daily living. Abuse/DV Screen: The patient / caregiver reports he/she is: not in a situation that causes fear, pain or injury. Nutritional screening: No deficits noted. Advance Directives: Currently, there is no health care proxy. There is no active DNR order. There is no living will. There is no Power of Nursing Faculty. home support is adequate. Assessment: 02:43 General: Appears in no apparent distress, uncomfortable, well nourished, well groomed, kas2 Behavior is appropriate for age, cooperative. Pain: Location: abdomen Pain currently is 9 out of 10 on a pain scale. Neurological: Level of Consciousness is awake, alert, Oriented to person, place, time. Cardiovascular: Capillary refill < 3 seconds Heart tones S1 S2 present Rhythm is sinus rhythm No ectopy. Respiratory: Airway is patent Respiratory effort is even, unlabored, Respiratory pattern is regular, symmetrical, Breath sounds are clear bilaterally. GI: Abdomen is flat, non- distended Bowel sounds present X 4 quads. Abd is soft X 4 quads Abd is tender to palpation X 4 quads. Derm: Skin is intact, is healthy with good turgor, Skin is dry, Skin is pink, warm & dry. Skin temperature is warm. 03:20 General: Patient gone to CT scan via stretcher with tech.. kas2 03:50 General: Patient back from CT scan via stretcher with RN. Resettled in bed. No kas2 complaints of pain at this time. Patient states she is pain free. Appears comfortable. at bedside. Call irby within reach. Will continue to monitor.. 04:45 General: Dr. Hennessy in to talk with patient about results of CT scan.. kas2 05:31 General: RN inserted NG tube 16 Fr at 55 cm. Hooked up to low wall suction. Good return kas2 of yellow colored bile. Patient tolerated procedure well. Sitting up in bed with at bedside. Appears much more comfortable at this time.. 06:30 General: Patient sitting up in bed at this time with at bedside. No apparent kas2 distress. Patient states she is comfortable. Airway is patent. Respiratory pattern is even and unlabored. NG tube remains in place and is to low wall suction at this time. Call irby within reach. Will continue to monitor.. 07:03 General: Appears in no apparent distress, Behavior is appropriate for age, cooperative. pml Pain: Pain currently is 5 out of 10 on a pain scale. Neurological: Level of Consciousness is awake, alert, Oriented to person, place, time. Cardiovascular: Capillary refill < 3 seconds. Respiratory: Airway is patent Respiratory effort is even, unlabored. GI: Abdomen is non- distended NGT in place, to suction. draining yellow bile. Derm: Skin is pink, warm & dry. 08:21 General: Appears in no apparent distress, Behavior is appropriate for age, cooperative. pml Pain: Location: abdomen Pain currently is 5 out of 10 on a pain scale. Neurological: Level of Consciousness is awake, alert, Oriented to person, place, time. Cardiovascular: Capillary refill < 3 seconds Rhythm is sinus rhythm No ectopy. GI: Abdomen is flat, non- distended NGT in place, to suction. Derm: Skin is pink, warm & dry. Vital Signs: 02:25 BP 156 / 72; Pulse 67; Resp 18; Temp 97.6(O); Pulse Ox 99% on R/A; Weight 92.53 kg (R); [facility] Height 5 ft. 6 in. (167.64 cm) (R); 04:16 BP 138 / 68; Pulse 65; Resp 18; Pulse Ox 99% on R/A; Pain 0/10; kas2 06:32 BP 149 / 74; Pulse 68; Resp 20; Temp 98.1(O); Pulse Ox 99% on R/A; Pain 0/10; kas2 08:15 BP 129 / 73; Pulse 62; Resp 18; Temp 99.3(O); Pulse Ox 98% on R/A; Pain 3/10; jrd 02:25 Body Mass Index 32.93 (92.53 kg, 167.64 cm) [facility] Vitals: 02:25 Log In Time: October 01, 2016 at 02:19. [facility] ED Course: 02:18 Patient visited by Jordyn Walters, Reg. hs2 02:18 Patient moved to Waiting hs2 02:21 Triage Initiated b 02:28 Krystle Constantino RN is Primary Nurse. jmb 02:28 Patient moved to 10 jmb 02:31 Patient visited by Krystle Constantino RN. kas2 02:52 Jono Hennessy DO is Attending Physician. cs11 02:52 Patient visited by Jono Hennessy DO. cs11 02:53 CBC with Diff Sent. kas2 02:53 MED Profile Sent. kas2 02:53 Liver Profile Sent. kas2 02:53 Amylase Sent. kas2 02:53 Lipase Sent. kas2 02:53 Inserted saline lock: 20 gauge in left antecubital area and blood collected. The kas2 patient tolerated the procedure well. No procedures done that require assistance. 03:27 Patient visited by Krystle Constantino RN. kas2 03:46 Patient visited by Krystle Constantino RN. kas2 04:16 Patient visited by Krystle Constantino RN. kas2 04:39 [facility] Payment Agreement was scanned into [employer] and attached to record. pm4 04:50 CT ABD & PELVIS: IV Contrast Only Returned. EDMS 05:17 Patient visited by Krystle Constantino RN. kas2 05:24 NGT inserted 18 Fr. via right nare. Placement verified. Returned gastric contents. to nn1 intermittent suction. Returned gastric contents. Patient tolerated well. 05:34 Patient visited by Krystle Constantino RN. kas2 06:00 Patient visited by Krystle Constantino RN. kas2 06:33 Patient visited by Krystle Constantino RN. kas2 06:41 Deacon Clayton MD is Hospitalizing Provider. cs11 07:03 The patient / caregiver is instructed regarding the plan of care and ED course. Patient pml has correct armband on for positive identification. Placed in gown. Bed in low position. Call light in reach. Side rails up X2. 07:05 Patient visited by Falguni Gonzales RN. pml 07:09 Primary Nurse role handed off by Krystle Constantino RN deg 07:40 T-Sheet-- Draft Copy was scanned into [employer] and attached to record. seh 08:15 Patient visited by Naren Bearden PCA. ismael 08:16 Patient visited by Naren Bearden PCA. jrlamar 13:08 Radiology Report was scanned into [employer] and attached to record. gb Administered Medications: 03:45 Drug: NS 0.9% 1000 ml [sodium chloride 0.9 % intravenous solution] Route: IV; Rate: kas2 bolus; Site: left antecubital; 03:46 Drug: Dilaudid - HYDROmorphone 1 mg [hydromorphone 1 mg/mL injection syringe (1 mL)] kas2 Route: IVP; Site: left antecubital; 04:16 Follow up: BP 138 / 68; Pulse 65 bpm; Resp 18 bpm; Pulse Ox 99% RA; Pain 0/10 Adult; kas2 Response: No Adverse Reaction; Pain is decreased 05:27 Drug: Dilaudid - HYDROmorphone 0.5 mg [hydromorphone 1 mg/mL injection syringe (0.5 kas2 mL)] Route: IVP; Site: left antecubital; 07:00 Follow up: Response: Pain is decreased pml Order Results: Lab Order: CBC with Diff; SPEC'M 10/01/16 02:42 Test: WHITE BLOOD COUNT; Value: 12.2; Range: 4.0-10.0; Abnormal: Above high normal; Units: K/mm3; Status: F Test: RED BLOOD COUNT; Value: 4.86; Range: 4.00-5.40; Units: M/mm3; Status: F Test: HEMOGLOBIN; Value: 15.4; Range: 12.0-16.0; Units: g/dl; Status: F Test: HEMATOCRIT; Value: 45.4; Range: 36.0-47.0; Units: %; Status: F Test: MEAN CORPUSCULAR VOLUME; Value: 93.5; Range: 80.0-96.0; Units: fl; Status: F Test: MEAN CORPUSCULAR HEMOGLOBIN; Value: 31.6; Range: 27.0-33.0; Units: pg; Status: F Test: MEAN CORPUSCULAR HGB CONC; Value: 33.8; Range: 32.0-36.5; Units: g/dl; Status: F Test: RED CELL DISTRIBUTION WIDTH; Value: 13.0; Range: 11.5-14.5; Units: %; Status: F Test: PLATELET COUNT, AUTOMATED; Value: 320; Range: 150-450; Units: k/mm3; Status: F Test: NEUTROPHILS %; Value: 85.2; Range: 36.0-66.0; Abnormal: Above high normal; Units: %; Status: F Test: LYMPH %; Value: 9.2; Range: 24.0-44.0; Abnormal: Below low normal; Units: %; Status: F Test: MONO %; Value: 2.9; Range: 0.0-5.0; Units: %; Status: F Test: EOS %; Value: 0.8; Range: 0.0-3.0; Units: %; Status: F Test: BASO %; Value: 0.3; Range: 0.0-1.0; Units: %; Status: F Test: LARGE UNSTAINED CELL %; Value: 1.5; Range: 0.0-4.0; Units: %; Status: F Test: NEUTROPHILS #; Value: 10.4; Range: 1.8-7.7; Abnormal: Above high normal; Units: K/mm3; Status: F Test: LYMPH #; Value: 1.1; Range: 1.5-4.5; Abnormal: Below low normal; Units: K/mm3; Status: F Test: MONO #; Value: 0.4; Range: 0.0-0.8; Units: K/mm3; Status: F Test: EOS #; Value: 0.1; Range: 0.0-0.50; Units: K/mm3; Status: F Test: BASO #; Value: 0.0; Range: 0.0-0.2; Units: K/mm3; Status: F Test: LARGE UNSTAINED CELL #; Value: 0.2; Range: 0.0-0.4; Units: K/mm3; Status: F Lab Order: MED Profile; SPEC'M 10/01/16 02:42 Test: GLUCOSE, FASTING; Value: 113; Range: 70-105; Abnormal: Above high normal; Units: MG/DL; Status: F Test: BLOOD UREA NITROGEN; Value: 20; Range: 7-18; Abnormal: Above high normal; Units: MG/DL; Status: F Test: CREATININE FOR GFR; Value: 0.82; Range: 0.55-1.02; Units: MG/DL; Status: F Test: GLOMERULAR FILTRATION RATE; Value: > 60.0; Range: >58; Status: F Test: SODIUM LEVEL; Value: 145; Range: 136-145; Units: MEQ/L; Status: F Test: POTASSIUM SERUM; Value: 4.0; Range: 3.5-5.1; Units: MEQ/L; Status: F Test: CHLORIDE LEVEL; Value: 110; Range: 98-107; Abnormal: Above high normal; Units: MEQ/L; Status: F Test: CARBON DIOXIDE LEVEL; Value: 26; Range: 21-32; Units: MEQ/L; Status: F Test: ANION GAP; Value: 9; Range: 8-16; Units: MEQ/L; Status: F Test: CALCIUM LEVEL; Value: 8.3; Range: 8.5-10.1; Abnormal: Below low normal; Units: MG/DL; Status: F Test Note: ; Units are mL/min/1.73 m2 Chronic Kidney Disease Staging per NKF: Stage I & II GFR >=60 Normal to Mildly Decreased Stage III GFR 30-59 Moderately Decreased Stage IV GFR 15-29 Severely Decreased Stage V GFR <15 Very Little GFR Left ESRD GFR <15 on MEDICAL RADIATION THERAPIST Lab Order: Liver Profile; SPEC'M 10/01/16 02:42 Test: AST/SGOT; Value: 11; Range: 15-37; Abnormal: Below low normal; Units: U/L; Status: F Test: ALT/SGPT; Value: 20; Range: 12-78; Units: U/L; Status: F Test: ALKALINE PHOSPHATASE; Value: 62; Range: 45-117; Units: U/L; Status: F Test: BILIRUBIN,TOTAL; Value: 0.3; Range: 0.2-1.0; Units: MG/DL; Status: F Test: BILIRUBIN,DIRECT; Value: < 0.1; Range: 0.0-0.2; Units: MG/DL; Status: F Test: TOTAL PROTEIN; Value: 7.0; Range: 6.4-8.2; Units: GM/DL; Status: F Test: ALBUMIN; Value: 3.7; Range: 3.2-5.2; Units: GM/DL; Status: F Test: ALBUMIN/GLOBULIN RATIO; Value: 1.12; Range: 1.00-1.93; Status: F Lab Order: Amylase; SPEC'M 10/01/16 02:42 Test: AMYLASE; Value: 38; Range: 25-115; Units: U/L; Status: F Lab Order: Lipase; SPEC'M 10/01/16 02:42 Test: LIPASE; Value: 131; Range: 73-393; Units: U/L; Status: F Lab Order: Urinalysis; SPEC'M 10/01/16 05:24 Test: APPEARANCE, URINE; Value: CLEAR; Range: CLEAR; Status: F Test: COLOR, URINE; Value: YELLOW; Range: YELLOW; Status: F Test: PH,URINE; Value: 6.0; Range: 5.0-9.0; Units: UNITS; Status: F Test: SPECIFIC GRAVITY URINE AUTO; Value: >1.060; Range: 1.002-1.035; Abnormal: Above high normal; Status: F Test: PROTEIN, URINE AUTO; Value: NEGATIVE; Range: NEGATIVE; Units: mg/dL; Status: F Test: GLUCOSE, URINE (UA) AUTO; Value: NEGATIVE; Range: NEGATIVE; Units: mg/dL; Status: F Test: KETONE, URINE AUTO; Value: NEGATIVE; Range: NEGATIVE; Units: mg/dL; Status: F Test: UROBILINOGEN, URINE AUTO; Value: 0.2; Range: 0.0-2.0; Units: mg/dL; Status: F Test: BILIRUBIN, URINE AUTO; Value: NEGATIVE; Range: NEGATIVE; Status: F Test: NITRITE, URINE AUTO; Value: NEGATIVE; Range: NEGATIVE; Status: F Test: LEUKOCYTE ESTERASE, URINE AUTO; Value: NEGATIVE; Range: NEGATIVE; Status: F Test: BLOOD, URINE BLOOD; Value: NEGATIVE; Range: NEGATIVE; Status: F Test: WBC, URINE AUTO; Value: 0; Range: 0-3; Units: /HPF; Status: F Test: RBC, URINE AUTO; Value: 2; Range: 0-3; Units: /HPF; Status: F Test: BACTERIA, URINE AUTO; Value: 1+; Range: NEGATIVE; Abnormal: Above high normal; Status: F Test: SQUAMOUS EPITHELIAL CELL UR AU; Value: 7; Range: 0-6; Units: /HPF; Status: F Test: MUCUS, URINE; Value: SMALL; Range: NEGATIVE; Status: F Test: HYALINE CAST, URINE AUTO; Value: 0; Range: 0-1; Units: /LPF; Status: F Radiology Order: CT ABD & PELVIS: IV Contrast Only Test: CT ABD & PELVIS: IV Contrast Only REASON FOR EXAMINATION: Abdomen Pain; ; CLINICAL HISTORY: Abdominal pain.; TECHNIQUE: Multiple axial, sagittal and coronal CT images were obtained through the abdomen and pelvi; s after administration of intravenous contrast material.; COMMENTS:; Fluid filled distended stomach.; Fluid-filled dilated proximal small bowels.; Transition zone in the left lower quadrant.; The liver is of uniform attenuation without mass or defect. There is no intra or extrahepatic biliary; ductal dilatation. The spleen is normal. The gallbladder is within normal limits. The pancreas is of; normal contour and attenuation characteristics. There is no evidence of adrenal mass.; Both kidneys demonstrate prompt and equal nephrograms. The kidneys are normal in size, shape and conf; iguration. There is no evidence of renal or ureteral mass. No renal or ureteral calculi are identifie; d. There is no hydroureter or hydronephrosis.; No evidence for appendicitis.; There is no evidence of intrinsic or extrinsic bladder mass. There is small amount of free fluid in t; he pelvis.; Images of the lung bases show no evidence of pleural or parenchymal mass. There are no pleural effusi; ons.; The bony structures are free of lytic or blastic lesions. Multilevel degenerative changes are seen in; volving the thoracolumbar spine. Scattered calcifications are seen involving the aorta and major bran; ches compatible with atherosclerosis.; IMPRESSION:; Partial small bowel obstruction.; Transition zone in the left lower quadrant.; No bowel perforation or pneumatosis intestinalis.; Small amount of free fluid in the pelvis.; Thank you for your kind referral of this patient.; ; Outcome: 06:42 Decision to Hospitalize by Provider. cs11 08:21 Discharge Assessment: Patient awake, alert and oriented x 3. No cognitive and/or pml functional deficits noted. Patient verbalized understanding of disposition instructions. patient administered narcotics - yes. Patient was admitted to the hospital or transferred to another facility. The following High Risk Discharge criteria are identified: None. Admitted to Pediatrics accompanied by tech, via wheelchair, with chart. Condition: stable. CT Study completed. Admission hand-off: Report called to Ruthann RN Peds. Property :Personal belongings accompany Pt. 08:23 Patient left the ED. pml Signatures: Dispatcher [employer] EDMS Maribell Barrios, Maintenance Engineer Unit deg Rachel Arthur, Reg Reg gb Falguni Gonzales,RN RN pml Jono Hennessy, DO DO cs11 Shadi Daniels,RN RN jmb Naren Bearden, LOAN INSPECTOR LOAN INSPECTOR jrd Ragini Tyson,RN RN nn1 Jordyn Walters, Reg Reg hs2 Krystle Constantino RN RN kas2 Guerita Marin Paul, Reg Reg pm4 Corrections: (The following items were deleted from the chart) 08:16 08:15 BP 129 / 73; Pulse 58bpm; Resp 16bpm; Pulse Ox 98% RA; Temp 99.3F Oral; Pain jrd 3/10; jrd Chart Complete MTDD
--- NOTE | 2016-10-03 09:24 | EDDOCDS ---
Physician Documentation [facility] Name: Bolivar Curran Age: 46 yrs Sex: Female : 1970 Arrival Date: 10/01/2016 Time: 02:17 Bed 10 Private MD: Disposition: 10/01/16 06:42 Hospitalization ordered by Deacon Clayton for Inpatient Admission. Preliminary diagnosis is Other and unspecified intestinal obstruction. - Bed requested for M PED. - Status is Inpatient Admission. pml - Condition is Stable. - Problem is new. - Symptoms have improved. Historical: - Allergies: No known drug Allergies; - Home Meds: 1. folic acid 1 mg Oral tab 1 tab once daily 2. azithromycin 1 gram Oral pack 1 packet just finished 3. methotrexate sodium 15 mg oral tab 1 tab once wkly - PMHx: Psoriasis; Ulcers; - PSHx: partial hysterectomy; - Social history: Smoking status: Patient states former smoker of tobacco. No barriers to communication noted, The patient speaks fluent Amharic, Speaks appropriately for age. - Family history: Not pertinent. - : The pt / caregiver states he / she is not on anticoagulants. Home medication list is obtained from the patient. - Exposure Risk Screening:: None identified. 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 6 in. (167.64 cm) (R); 04:16 BP 138 / 68; Pulse 65; Resp 18; Pulse Ox 99% on R/A; Pain 0/10; kas2 06:32 BP 149 / 74; Pulse 68; Resp 20; Temp 98.1(O); Pulse Ox 99% on R/A; Pain 0/10; kas2 08:15 BP 129 / 73; Pulse 62; Resp 18; Temp 99.3(O); Pulse Ox 98% on R/A; Pain 3/10; jrd 02:25 Body Mass Index 32.93 (92.53 kg, 167.64 cm) [facility] MDM: 02:52 IV Saline Lock ordered. cs11 02:53 CBC with Diff Ordered. EDMS 02:53 MED Profile Ordered. EDMS 02:53 Liver Profile Ordered. EDMS 02:53 Amylase Ordered. EDMS 02:53 Lipase Ordered. EDMS 02:53 Urinalysis Ordered. EDMS 02:53 Urine Culture Ordered. EDMS 03:32 NS 0.9% 1000 ml IV at bolus once ordered. cs11 03:32 Dilaudid - HYDROmorphone 1 mg IVP once ordered. cs11 03:38 CBC with Diff Reviewed. cs11 03:38 MED Profile Reviewed. cs11 03:38 Liver Profile Reviewed. cs11 03:38 Amylase Reviewed. cs11 03:38 Lipase Reviewed. cs11 03:58 CT ABD & PELVIS: IV Contrast Only Ordered. EDMS 04:17 Financial registration complete. pm4 04:39 [facility] Payment Agreement was scanned into [employer] and attached to record. pm4 04:53 NG/OG Tube 18Fr to L.I.S. with hourly monitoring for placement ordered. cs11 05:00 BED REQUEST+ADM ordered. EDMS 05:05 Dilaudid - HYDROmorphone 0.5 mg IVP once ordered. cs11 07:01 Admission / Observation Status ordered. EDMS 07:01 NPO DIET ordered. EDMS 07:40 T-Sheet-- Draft Copy was scanned into [employer] and attached to record. [facility] 13:08 Radiology Report was scanned into [employer] and attached to record. gb Administered Medications: 03:45 Drug: NS 0.9% 1000 ml [sodium chloride 0.9 % intravenous solution] Route: IV; Rate: kas2 bolus; Site: left antecubital; 03:46 Drug: Dilaudid - HYDROmorphone 1 mg [hydromorphone 1 mg/mL injection syringe (1 mL)] kas2 Route: IVP; Site: left antecubital; 04:16 Follow up: BP 138 / 68; Pulse 65 bpm; Resp 18 bpm; Pulse Ox 99% RA; Pain 0/10 Adult; kas2 Response: No Adverse Reaction; Pain is decreased 05:27 Drug: Dilaudid - HYDROmorphone 0.5 mg [hydromorphone 1 mg/mL injection syringe (0.5 kas2 mL)] Route: IVP; Site: left antecubital; 07:00 Follow up: Response: Pain is decreased pml Signatures: Dispatcher [employer] EDMS Rachel Arthur, Reg Reg gb Falguni GonzalesRN RN pml Jono Hennessy, DO cs11 Shadi Daniels RN RN jmb Abare, Karen, RN RN kaa Hoffert, Guerita seHerbert Gusman, Reg Reg pm4 Krystle Constantino RN kas2 The chart was reviewed and I authenticate all verbal orders and agree with the evaluation and treatment provided.Attachments: 04:39 [facility] Payment Agreement pm4 07:40 T-Sheet-- Draft Copy [facility] Chart Complete MTDD
[2016-10-03] MEDS: PANTOPRAZOLE 40MG INJ (PROTONIX) (C9113) IV SCH (09:59)
[2016-10-03] MEDS: ENOXAPARIN 40 MG/0.4 ML SYRINGE (J1650) SC SCH (10:07)
[2016-10-03 16:00] VITALS: BP 116/57
[2016-10-03 20:00] VITALS: BP 136/81
[2016-10-04 04:00] VITALS: BP 129/77
[2016-10-04 07:24] LABS: BASO % 0.5 % (0.0-1.0); EOS # 0.2 K/mm3 (0.0-0.50); EOS % 2.8 % (0.0-3.0); LARGE UNSTAINED CELL # 0.3 K/mm3 (0.0-0.4); LARGE UNSTAINED CELL % 4.1 % (0.0-4.0); LYMPH # 1.2 K/mm3 (1.5-4.5); LYMPH % 14.8 % (24.0-44.0); MEAN CORPUSCULAR HEMOGLOBIN 32.8 pg (27.0-33.0); MEAN CORPUSCULAR HGB CONC 34.8 g/dl (32.0-36.5); MEAN CORPUSCULAR VOLUME 94.3 fl (80.0-96.0); MONO # 0.6 K/mm3 (0.0-0.8); MONO % 6.8 % (0.0-5.0); NEUTROPHILS # 5.9 K/mm3 (1.8-7.7); NEUTROPHILS % 71.1 % (36.0-66.0); PLATELET COUNT, AUTOMATED 261 k/mm3 (150-450); RED CELL DISTRIBUTION WIDTH 13.2 % (11.5-14.5); WHITE BLOOD COUNT 8.2 K/mm3 (4.0-10.0)
[2016-10-04 07:30] VITALS: BP 142/91
[2016-10-04 07:47] LABS: ANION GAP 7 MEQ/L (8-16); BLOOD UREA NITROGEN 13 MG/DL (7-18); CALCIUM LEVEL 8.2 MG/DL (8.5-10.1); CARBON DIOXIDE LEVEL 28 MEQ/L (21-32); CHLORIDE LEVEL 109 MEQ/L (98-107); CREATININE FOR GFR 0.65 MG/DL (0.55-1.02); GLOMERULAR FILTRATION RATE > 60.0 (>58); GLUCOSE, FASTING 93 MG/DL (70-105); POTASSIUM SERUM 4.2 MEQ/L (3.5-5.1); SODIUM LEVEL 144 MEQ/L (136-145)
[2016-10-04] MEDS: ENOXAPARIN 40 MG/0.4 ML SYRINGE (J1650) SC SCH (09:00)
--- NOTE | 2016-10-04 09:10 | ROOR ---
Patient Name: Bolivar Curran Procedure Date: 10/04/2016 8:41 AM Date of : 1970 Age: 46 [place]: [facility] [place] Gender: Female Note Status: Finalized Procedure: Upper GI endoscopy Indications: Dyspepsia Providers: Deacon Clayton MD Referring MD: 2. Inpatient 2. Inpatient Requesting Provider: Medicines: Monitored Anesthesia Care Complications: No immediate complications. Procedure: Pre-Anesthesia Assessment: - Prior to the procedure, a History and Physical was performed, and patient medications and allergies were reviewed. The patient is competent. The risks and benefits of the procedure and the sedation options and risks were discussed with the patient. All questions were answered and informed consent was obtained. Patient identification and proposed procedure were verified by the physician, the nurse and the anesthesiologist in the endoscopy suite. Mental Status Examination: alert and oriented. Airway Examination: normal oropharyngeal airway and neck mobility. Respiratory Examination: clear to auscultation. CV Examination: normal. Prophylactic Antibiotics: The patient does not require prophylactic antibiotics. Prior Anticoagulants: The patient has taken no previous anticoagulant or antiplatelet agents. ASA Grade Assessment: II - A patient with mild systemic disease. After reviewing the risks and benefits, the patient was deemed in satisfactory condition to undergo the procedure. The anesthesia plan was to use monitored anesthesia care (MAC). Immediately prior to administration of medications, the patient was re-assessed for adequacy to receive sedatives. The heart rate, respiratory rate, oxygen saturations, blood pressure, adequacy of pulmonary ventilation, and response to care were monitored throughout the procedure. The physical status of the patient was re-assessed after the procedure. The Endoscope was introduced through the mouth, and advanced to the second part of duodenum. The upper GI endoscopy was accomplished without difficulty. The patient tolerated the procedure well. Findings: LA Grade B (one or more mucosal breaks greater than 5 mm, not extending between the tops of two mucosal folds) esophagitis with no bleeding was found 34 to 40 cm from the incisors. Biopsies were taken with a cold forceps for histology. Estimated blood loss was minimal. Patchy moderate inflammation characterized by erythema, friability and granularity was found in the gastric fundus. Biopsies were taken with a cold forceps for histology. Estimated blood loss was minimal. Bilious fluid was found in the gastric body. The gastric antrum was normal. Biopsies were taken with a cold forceps for Helicobacter pylori testing. Estimated blood loss was minimal. The 2nd part of the duodenum was normal. Impression: - LA Grade B reflux esophagitis. Rule out Agustin's esophagus. Biopsied. - Acute gastritis. Biopsied. - Bilious gastric fluid. - Normal antrum. Biopsied. - Normal 2nd part of the duodenum. Recommendation: - Admit the patient to [facility] for ongoing care. - Resume regular diet. - Use Protonix (pantoprazole) 40 mg PO daily for 3 months. - Use sucralfate tablets 1 gram PO QID for 6 weeks. Deacon Clayton MD Deacon Clayton MD 10/04/2016 9:09:54 AM This report has been signed electronically. Number of Addenda: 0 Note Initiated On: 10/04/2016 8:41 AM Estimated Blood Loss: Estimated blood loss was minimal.
[2016-10-04] MEDS ORDERED: PROPOFOL 200 MG/20 ML VIAL As Ordered ONE (09:11)
[2016-10-04] MEDS ORDERED: LIDOCAINE 2% INJ 100 MG/5 ML SDV (FOR ANES.) As Ordered ONE (09:11)
[2016-10-04 10:00] VITALS: BP 130/84
[2016-10-04] MEDS: PANTOPRAZOLE 40MG INJ (PROTONIX) (C9113) IV SCH (10:08)
[2016-10-04 10:30] VITALS: BP 11/72
[2016-10-04] MEDS ORDERED: SUCR1TA PO (10:58)
[2016-10-04] MEDS ORDERED: PROT40IN4 IV (10:58)
--- NOTE | 2016-10-07 12:15 | DSES ---
DATE OF ADMISSION: 10/01/2016 DISCHARGE DIAGNOSIS: 10/04/2016 DISCHARGE DIAGNOSES: 1. Partial small-bowel obstruction most likely secondary to adhesions, resolved. 2. Chronic appearing gastritis. DISCHARGE MEDICATIONS: New prescriptions: - pantoprazole (Protonix) 40 mg by mouth daily - Carafate 1 gram by mouth before meals and nightly Continued medications include: - Zithromax 250 mg by mouth as directed - folic acid 1 mg by mouth daily - methotrexate 50 mg by mouth weekly DISCHARGE INSTRUCTIONS: Include: 1. Activity as tolerated. Patient was given a slip back for work. 2. Diet as tolerated. Small frequent feedings recommended, staying upright for a couple of hours after eating recommended. 3. Wound care is nonapplicable. 4. Followup with me in 2 weeks' time. PROCEDURES DONE: An upper GI endoscopy performed during this procedure. CONDITION ON DISCHARGE: Improved. HOSPITAL COURSE: Ms. Curran is a 46-year-old female who presented herself to the emergency department with complaints of a 2-day history of ongoing midepigastric pain associated with nausea and vomiting. She has also a month history of intermittent epigastric pain and discomfort, suspected to have gastritis, being treated by her medical doctor. In the emergency room (ER), she was evaluated and was found to be suspicious of bowel obstruction. She had imaging showing dilated loops of proximal bowel and collapsed small bowel. She had a white cell count of 12.2. A nasogastric tube was placed in the emergency room draining about 400 mL immediately. Given the patient's improvement with her discomfort, she was admitted under my service, given intravenous (IV) fluid hydration and serial examination performed. She immediately improved with a nasogastric tube decompression. This was continued up until day #2 of hospital admission. At that time, she was passing flatus and has had a bowel movement and decrease in amount of nasogastric tube drainage. Her nasogastric (NG) tube was removed. She was started on clear liquids and she tolerated this. She was advanced to a regular diet. We then performed an upper GI endoscopy at about hospital day #4, prior to discharge, due to her complaint of chronic abdominal and epigastric pain. She was found to have evidence for gastritis, which appears acute on chronic, as well some mild esophagitis. These were all biopsied. She was then discharged home on Protonix as well as Carafate. She will followup with me in the clinic in 2 weeks' time.
== END 2016-10-04 11:55 | disposition home or self-care (01) | DRG 247 ==
LOC: M ED 02:17 → M ED INP 07:02 → M PED 08:50
PROVIDERS: ADMIT Surgery; ATTEND Surgery
PROC: 0DB48ZX Excision of Esophagogastric Junction, Via Natural or Artificial Opening Endoscopic, Diagnostic (ICD-10-PCS; 2016-10-04)
PROC: 0DB78ZX Excision of Stomach, Pylorus, Via Natural or Artificial Opening Endoscopic, Diagnostic (ICD-10-PCS; principal; 2016-10-04 11:15)
DX: K56.5 Intestinal adhesions [bands] with obstruction (postinfection) (principal); K21.0 Gastro-esophageal reflux disease with esophagitis; K29.50 Unspecified chronic gastritis without bleeding; K29.00 Acute gastritis without bleeding; Z79.899 Other long term (current) drug therapy

== ENCOUNTER → 2016-11-01 | Outpatient (CLI) | payer BC, OTHER ==
[~2016-11-01] MED LIST: FOLI1TAB2 PO; METH2.5TA PO; PROT40IN4 IV; SUCR1TA PO; ZITHTAB PO
--- NOTE | 2016-11-01 08:54 | REPMRS ---
Patient History The patient states she had a clinical breast exam in October 2016.No known family history of cancer. Digital Mammo Screening Bilat: November 01, 2016 - Exam #: [id number] Bilateral CC and MLO view(s) were taken. Technologist: Katy Price, Technologist Prior study comparison: October 30, 2015, bilateral digital mammo screening bilat performed at [facility]. October 29, 2014, bilateral digital mammo screening bilat performed at [facility]. FINDINGS: There are scattered fibroglandular densities. There is a fairly symmetric fibroglandular pattern in both breasts. There has been no interval development of masses, areas of architectural distortion or clusters of microcalcifications typical of malignancy. No significant changes when compared with prior studies. ASSESSMENT: BI-RADS/ACR category 2 mammogram. Benign finding(s). Recommendation Routine screening mammogram of both breasts in 1 year (for women over age 40). This mammogram was interpreted with the aid of an FDA-approved computer-aided dectection system. Electronically Signed By: Mariano Olvera MD 11/01/16 0853
== END ==
LOC: M RAD 08:21
PROVIDERS: ATTEND Obstetrics & Gynecology
DX: Z12.31 Encounter for screening mammogram for malignant neoplasm of breast (principal)

== ENCOUNTER → 2016-11-18 | Outpatient (CLI) | payer BC, OTHER ==
[~2016-11-18] MED LIST changes: +E-Z PAQUE 60% w/v SUSP 355ML BOTTLE As Ordered ONE; +E-Z-GAS II EFFERVESCENT PACKET (SODIUM BICARB./CITRIC ACID/SIMETHICONE) As Ordered ONE; +E-Z-HD 98% w/w 340GM SUSP BTL As Ordered ONE
--- NOTE | 2016-11-18 15:30 | REP ---
UPPER GI AIR CONTRAST AND SMALL BOWEL FOLLOW THROUGH: The procedure was performed under the direct supervision of Dr. Koo. The images were reviewed with Dr. Koo. 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 The intestinal gas pattern is nonspecific. 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 Liquid barium and gas producing granules are given in the erect position as well as liquid barium in the prone oblique position in order to perform a double contrast upper GI examination. Additionally liquid barium was given at the end of the examination in order to perform a small bowel follow through. The oral and pharyngeal stages of deglutition are unremarkable. Esophageal transport is prompt and efficient and there is no esophagitis or stricture, mucosal ring or hiatal hernia. Gastroesophageal reflux is not demonstrated on this examination. The stomach centeno are normally outlined. The rugal folds are smooth and regular. There is no gastritis, neoplasm or ulcer disease. The duodenal cneteno are normally outlined. The mucosal folds are smooth and regular. There is no duodenitis, pancreatitis, peptic ulcer disease or neoplasm. The visualized portion of the proximal small bowel appears normal in course and caliber. The barium column is followed through the small bowel to the level of the terminal ileum. Small bowel transit time is approximately 15 minutes. During fluoroscopy, gentle palpation shows all loops are freely movable and pliable. There are no fixed or angulated loops. The small bowel mucosal pattern is normal in course and caliber. There is no transition to suggest a partial small bowel obstruction. Spot filming of the terminal ileum shows it to be unremarkable. IMPRESSION: Essentially unremarkable double contrast upper GI and small bowel follow through examination. 4 minutes and 44 seconds or fluoroscopy time was utilized for this procedure. Reviewed by KRISHNA Ryder 11/18/2016 03:37 PEdited and Signed by Teodoro Koo MD 11/18/2016 05:00 P
== END ==
LOC: M RAD 08:47
PROVIDERS: ATTEND Internal Medicine Gastroenterology
DX: K56.60 Unspecified intestinal obstruction (principal)

== ENCOUNTER → 2017-02-20 | Outpatient (REF) | payer OTHER ==
[~2017-02-20] MED LIST changes: -E-Z PAQUE 60% w/v SUSP 355ML BOTTLE As Ordered ONE; -E-Z-GAS II EFFERVESCENT PACKET (SODIUM BICARB./CITRIC ACID/SIMETHICONE) As Ordered ONE; -E-Z-HD 98% w/w 340GM SUSP BTL As Ordered ONE
[2017-02-20 12:09] LABS: MEAN CORPUSCULAR HEMOGLOBIN 31.1 pg (27.0-33.0); MEAN CORPUSCULAR HGB CONC 33.8 g/dl (32.0-36.5); RED CELL DISTRIBUTION WIDTH 12.1 % (11.5-14.5)
[2017-02-20 12:53] LABS: ALBUMIN 3.4 GM/DL (3.2-5.2); ALBUMIN/GLOBULIN RATIO 1.21 (1.00-1.93); ALKALINE PHOSPHATASE 57 U/L (45-117); ALT/SGPT 45 U/L (12-78); ANION GAP 8 MEQ/L (8-16); AST/SGOT 32 U/L (15-37); BILIRUBIN,TOTAL 0.2 MG/DL (0.2-1.0); BLOOD UREA NITROGEN 16 MG/DL (7-18); CALCIUM LEVEL 8.7 MG/DL (8.5-10.1); CARBON DIOXIDE LEVEL 27 MEQ/L (21-32); CHLORIDE LEVEL 105 MEQ/L (98-107); CHOLESTEROL LEVEL 154 MG/DL (<200); CREATININE FOR GFR 0.55 MG/DL (0.55-1.02); GLOMERULAR FILTRATION RATE > 60.0 (>58); GLUCOSE, FASTING 81 MG/DL (70-105); SODIUM LEVEL 140 MEQ/L (136-145); TOTAL PROTEIN 6.2 GM/DL (6.4-8.2); TRIGLYCERIDES LEVEL 65 MG/DL (<150)
[2017-02-21 12:54] LABS: T UPTAKE 31 % (30-39); THYROXINE (T4) 11.6 UG/DL (4.5-12.0)
[2017-02-22 09:34] LABS: THYROID PEROXIDASE ANTIBODY < 28.0 U/ML (<60.0)
== END ==
LOC: M SFHCCLAY 08:42
PROVIDERS: ATTEND Nurse Practitioner
DX: R63.5 Abnormal weight gain (principal)

== ENCOUNTER → 2017-02-27 | Outpatient (CLI) | payer BC, OTHER ==
--- NOTE | 2017-02-28 10:56 | REP ---
NUCLEAR THYROID UPTAKE AND SCAN: Following the oral administration of 415 microcuries of Iodine 123 as sodium iodide, thyroid uptake is measured. The 24-hour uptake is 0.33%, which is below the normal range of 25-35%. Thyroid scan shows essentially no uptake by the thyroid gland. Signed by Mariano Olvera MD 02/28/2017 01:48 P
== END ==
LOC: M RAD 09:11
PROVIDERS: ATTEND Nurse Practitioner
DX: R94.6 Abnormal results of thyroid function studies (principal)

== ENCOUNTER → 2017-03-08 | Outpatient (CLI) | payer BC, OTHER ==
[~2017-03-08] VITALS: Ht 167.6 cm; Wt 99.3 kg
[~2017-03-08] MED LIST changes: +LIDOCAINE 2% INJ 100 MG/5 ML SDV (FOR ANES.) As Ordered ONE; +PROPOFOL 200 MG/20 ML VIAL As Ordered ONE
--- NOTE | 2017-03-08 07:50 | ROOR ---
Patient Name: Bolivar Curran Procedure Date: 03/08/2017 7:28 AM Date of : 1970 Age: 47 Room: [facility] Gender: Female Note Status: Finalized Procedure: Upper GI endoscopy Indications: Epigastric abdominal pain Providers: Deacon Clayton MD Referring MD: LULA SERRATO NP Requesting Provider: Medicines: Monitored Anesthesia Care Complications: No immediate complications. Procedure: Pre-Anesthesia Assessment: - Prior to the procedure, a History and Physical was performed, and patient medications and allergies were reviewed. The patient is competent. The risks and benefits of the procedure and the sedation options and risks were discussed with the patient. All questions were answered and informed consent was obtained. Patient identification and proposed procedure were verified by the physician, the nurse and the anesthesiologist in the procedure room. Mental Status Examination: alert and oriented. Airway Examination: normal oropharyngeal airway and neck mobility. Respiratory Examination: clear to auscultation. CV Examination: normal. Prophylactic Antibiotics: The patient does not require prophylactic antibiotics. Prior Anticoagulants: The patient has taken no previous anticoagulant or antiplatelet agents. ASA Grade Assessment: II - A patient with mild systemic disease. After reviewing the risks and benefits, the patient was deemed in satisfactory condition to undergo the procedure. The anesthesia plan was to use monitored anesthesia care (MAC). Immediately prior to administration of medications, the patient was re-assessed for adequacy to receive sedatives. The heart rate, respiratory rate, oxygen saturations, blood pressure, adequacy of pulmonary ventilation, and response to care were monitored throughout the procedure. The physical status of the patient was re-assessed after the procedure. The Endoscope was introduced through the mouth, and advanced to the second part of duodenum. The upper GI endoscopy was accomplished without difficulty. The patient tolerated the procedure well. Findings: Evidence of previous ulcer/erosion at lower third of esophagus showing healing. Still some residual swelling at GE junction, This was biopsied with a cold forceps for histology. Estimated blood loss was minimal. The entire examined stomach was normal. The second portion of the duodenum was normal. Impression: - Normal stomach. - Normal second portion of the duodenum. Recommendation: - Discharge patient to home (ambulatory). - Continue present medications. - Await pathology results. - Telephone my office for pathology results in 2 weeks. Deacon Clayton MD Deacon Clayton MD 03/08/2017 7:49:53 AM This report has been signed electronically. Number of Addenda: 0 Note Initiated On: 03/08/2017 7:28 AM Estimated Blood Loss: Estimated blood loss was minimal.
[2017-03-08 08:05] VITALS: BP 110/63
== END | disposition home or self-care (01) ==
LOC: M OPP 06:41
PROVIDERS: ATTEND Surgery
DX: R10.13 Epigastric pain (principal); R60.0 Localized edema; E03.9 Hypothyroidism, unspecified; K21.9 Gastro-esophageal reflux disease without esophagitis; L40.9 Psoriasis, unspecified; R06.83 Snoring; Z87.891 Personal history of nicotine dependence

== ENCOUNTER → 2017-03-22 | Outpatient (CLI) | payer BC, OTHER ==
[~2017-03-22] MED LIST changes: -FOLI1TAB2 PO; +FOLI1TAB4 PO; -LIDOCAINE 2% INJ 100 MG/5 ML SDV (FOR ANES.) As Ordered ONE; -PROPOFOL 200 MG/20 ML VIAL As Ordered ONE
[2017-03-22 16:14] LABS: FREE T4 0.69 NG/DL (0.76-1.46)
[2017-03-22 16:17] LABS: THYROID PEROXIDASE ANTIBODY < 28.0 U/ML (<60.0)
== END ==
LOC: M LAB 15:02
PROVIDERS: ATTEND Nurse Practitioner Family
DX: R94.6 Abnormal results of thyroid function studies (principal)

== ENCOUNTER → 2017-05-08 | Outpatient (REF) | payer OTHER, BC ==
[2017-05-08 21:20] LABS: FREE T4 0.69 NG/DL (0.76-1.46)
== END ==
LOC: M LABDRAW1 11:12
PROVIDERS: ATTEND Internal Medicine Endocrinology, Diabetes & Metabolism
DX: R94.6 Abnormal results of thyroid function studies (principal)

== ENCOUNTER → 2017-06-09 | Outpatient (REF) | payer OTHER ==
[2017-06-09 13:39] LABS: ALBUMIN 3.7 GM/DL (3.2-5.2); ALBUMIN/GLOBULIN RATIO 1.23 (1.00-1.93); ALKALINE PHOSPHATASE 62 U/L (45-117); ALT/SGPT 18 U/L (12-78); ANION GAP 7 MEQ/L (8-16); AST/SGOT 13 U/L (15-37); BILIRUBIN,TOTAL 0.5 MG/DL (0.2-1.0); BLOOD UREA NITROGEN 19 MG/DL (7-18); CALCIUM LEVEL 8.6 MG/DL (8.5-10.1); CARBON DIOXIDE LEVEL 27 MEQ/L (21-32); CHLORIDE LEVEL 106 MEQ/L (98-107); CREATININE FOR GFR 0.77 MG/DL (0.55-1.02); GLOMERULAR FILTRATION RATE > 60.0 (>58); GLUCOSE, FASTING 84 MG/DL (70-105); POTASSIUM SERUM 3.7 MEQ/L (3.5-5.1); SODIUM LEVEL 140 MEQ/L (136-145); TOTAL PROTEIN 6.7 GM/DL (6.4-8.2)
== END ==
LOC: M SFHCPLAZ 08:22
PROVIDERS: ATTEND Nurse Practitioner Family
DX: R60.0 Localized edema (principal); R63.5 Abnormal weight gain

== ENCOUNTER → 2017-06-14 | Outpatient (CLI) | payer BC, OTHER ==
--- NOTE | 2017-06-15 00:38 | REP ---
Clinical: Left hip pain. Technique: Neutral and frog lateral views of the left hip. Findings: No fracture or dislocation. Skeletal structures and joint spaces appear relatively normal for age. Very minimal increase sclerosis and subtle spurring along the acetabular roof identified. No significant osteophytosis, joint space narrowing or periarticular calcifications are identified. Impression: Relatively normal, age-appropriate changes to the left hip. If Signed by Gonzales Blackmon MD 06/15/2017 12:29 A
== END ==
LOC: M RAD 14:49
PROVIDERS: ATTEND Nurse Practitioner Family
DX: M25.552 Pain in left hip (principal)

== ENCOUNTER → 2017-07-04 | Outpatient (CLI) | payer BC, OTHER ==
[2017-07-04 11:20] LABS: FREE T4 0.81 NG/DL (0.76-1.46)
== END ==
LOC: M LAB 09:23
PROVIDERS: ATTEND Internal Medicine Endocrinology, Diabetes & Metabolism
DX: R94.6 Abnormal results of thyroid function studies (principal)

== ENCOUNTER → 2017-08-31 | Outpatient (REF) | payer BC, OTHER ==
[2017-08-31 13:04] LABS: FREE T4 0.89 NG/DL (0.76-1.46)
== END ==
LOC: M LABDRAW1 09:10
PROVIDERS: ATTEND Internal Medicine Endocrinology, Diabetes & Metabolism
DX: E06.1 Subacute thyroiditis (principal)

== ENCOUNTER → 2017-09-12 | Outpatient (REF) | payer OTHER | LOC: M SFHCPLAZ 14:57 | PROVIDERS: ATTEND Nurse Practitioner Adult Health | DX: J02.9 Acute pharyngitis, unspecified (principal) ==

== ENCOUNTER → 2017-11-02 | Outpatient (CLI) | payer BC, OTHER | LOC: M RAD 07:49 | DX: Z12.31 Encounter for screening mammogram for malignant neoplasm of breast (principal) ==

== ENCOUNTER 2017-12-29 06:58 | Day surgery (SDC) | payer BC, OTHER ==
[2017-12-29] MEDS ORDERED: NS 1,000 ML IV (07:15)
[2017-12-29] MEDS ORDERED: LIDOCAINE 2% INJ 100 MG/5 ML SDV (FOR ANES.) As Ordered (08:37)
[2017-12-29] MEDS ORDERED: PROPOFOL 200 MG/20 ML VIAL As Ordered (08:37)
== END 2017-12-29 09:01 | disposition home or self-care (01) ==
LOC: M OPP 06:58
DX: K64.8 Other hemorrhoids (principal); K57.30 Diverticulosis of large intestine without perforation or abscess without bleeding; K59.00 Constipation, unspecified; K21.9 Gastro-esophageal reflux disease without esophagitis; L40.9 Psoriasis, unspecified; Z79.899 Other long term (current) drug therapy; Z87.891 Personal history of nicotine dependence; Z90.710 Acquired absence of both cervix and uterus
CPT/HCPCS: 45378

== ENCOUNTER → 2018-03-06 | Outpatient (REF) | payer OTHER ==
[2018-03-06 17:44] LABS: ALBUMIN 3.7 GM/DL (3.2-5.2); ALBUMIN/GLOBULIN RATIO 1.23 (1.00-1.93); ALKALINE PHOSPHATASE 70 U/L (45-117); ALT/SGPT 35 U/L (12-78); ANION GAP 7 MEQ/L (8-16); AST/SGOT 20 U/L (7-37); BILIRUBIN,TOTAL 0.2 MG/DL (0.2-1.0); BLOOD UREA NITROGEN 16 MG/DL (7-18); CALCIUM LEVEL 8.5 MG/DL (8.5-10.1); CARBON DIOXIDE LEVEL 30 MEQ/L (21-32); CHLORIDE LEVEL 108 MEQ/L (98-107); CREATININE FOR GFR 0.69 MG/DL (0.55-1.30); GLOMERULAR FILTRATION RATE > 60.0 (>51); GLUCOSE, FASTING 73 MG/DL (70-100); POTASSIUM SERUM 4.2 MEQ/L (3.5-5.1); SODIUM LEVEL 145 MEQ/L (136-145); TOTAL PROTEIN 6.7 GM/DL (6.4-8.2)
== END ==
LOC: M SFHCPLAZ 10:01
DX: E04.9 Nontoxic goiter, unspecified (principal); E06.1 Subacute thyroiditis

== ENCOUNTER → 2018-03-22 | Outpatient (CLI) | payer BC, OTHER | LOC: M CARPUL 07:54 | DX: R60.0 Localized edema (principal) | CPT/HCPCS: 93306 ==

== ENCOUNTER → 2018-04-09 | Outpatient (REF) | payer OTHER ==
[2018-04-09 12:13] LABS: ALBUMIN 3.8 GM/DL (3.2-5.2); ALBUMIN/GLOBULIN RATIO 1.19 (1.00-1.93); ALKALINE PHOSPHATASE 69 U/L (45-117); ALT/SGPT 29 U/L (12-78); AMYLASE 35 U/L (25-115); ANION GAP 9 MEQ/L (8-16); AST/SGOT 15 U/L (7-37); BILIRUBIN,TOTAL 0.2 MG/DL (0.2-1.0); BLOOD UREA NITROGEN 17 MG/DL (7-18); CALCIUM LEVEL 8.7 MG/DL (8.5-10.1); CARBON DIOXIDE LEVEL 27 MEQ/L (21-32); CHLORIDE LEVEL 109 MEQ/L (98-107); CREATININE FOR GFR 0.78 MG/DL (0.55-1.30); GLOMERULAR FILTRATION RATE > 60.0 (>51); GLUCOSE, FASTING 81 MG/DL (70-100); LIPASE 145 U/L (73-393); POTASSIUM SERUM 3.9 MEQ/L (3.5-5.1); SODIUM LEVEL 145 MEQ/L (136-145)
== END ==
LOC: M SFHCPLAZ 09:19
DX: R10.13 Epigastric pain (principal); K21.9 Gastro-esophageal reflux disease without esophagitis

== ENCOUNTER → 2018-04-13 | Outpatient (REF) | payer OTHER ==
[2018-04-16 10:32] LABS: H PYLORI STOOL ANTIGEN Negative (Negative)
== END ==
LOC: M SFHCPLAZ 12:23
DX: R10.13 Epigastric pain (principal); K21.9 Gastro-esophageal reflux disease without esophagitis

== ENCOUNTER → 2018-04-17 | Outpatient (CLI) | payer BC, OTHER | LOC: M RAD 08:44 | DX: R10.13 Epigastric pain (principal); K21.9 Gastro-esophageal reflux disease without esophagitis | CPT/HCPCS: 76705 ==

== ENCOUNTER → 2018-05-29 | Outpatient (REF) | payer OTHER ==
[2018-05-31 14:17] LABS: HPV HYBRID CAPTURE II Negative (Negative)
== END ==
LOC: M SFHCWAGY 09:04
DX: Z12.72 Encounter for screening for malignant neoplasm of vagina (principal); Z01.419 Encounter for gynecological examination (general) (routine) without abnormal findings
CPT/HCPCS: G0123

== ENCOUNTER → 2018-08-24 | Outpatient (REF) | payer OTHER ==
[2018-08-24 11:53] LABS: BASO # 0.1 10^3/uL (0.0-0.2); BASO % 0.8 % (0.0-1.0); EOS # 0.2 10^3/uL (0.0-0.50); EOS % 1.6 % (0.0-3.0); HEMATOCRIT 44.1 % (36.0-47.0); HEMOGLOBIN 14.7 g/dl (12.0-15.5); IMMATURE GRANULOCYTE % 0.3 % (0-3.0); LYMPH # 2.5 10^3/uL (1.5-4.5); LYMPH % 21.6 % (24.0-44.0); MEAN CORPUSCULAR HEMOGLOBIN 31.9 pg (27.0-33.0); MEAN CORPUSCULAR HGB CONC 33.3 g/dl (32.0-36.5); MEAN CORPUSCULAR VOLUME 95.7 fl (80.0-96.0); MONO # 0.9 10^3/uL (0.0-0.8); MONO % 7.7 % (0.0-5.0); NEUTROPHILS # 7.8 10^3/uL (1.8-7.7); PLATELET COUNT, AUTOMATED 299 10^3/uL (150-450); RED BLOOD COUNT 4.61 10^6/uL (4.00-5.40); RED CELL DISTRIBUTION WIDTH 13.3 % (11.5-14.5); WHITE BLOOD COUNT 11.4 10^3/uL (4.0-10.0)
[2018-08-24 12:24] LABS: ALBUMIN 3.9 GM/DL (3.2-5.2); ALKALINE PHOSPHATASE 73 U/L (45-117); ALT/SGPT 22 U/L (12-78); ANION GAP 10 MEQ/L (8-16); AST/SGOT 16 U/L (7-37); BILIRUBIN,TOTAL 0.4 MG/DL (0.2-1.0); BLOOD UREA NITROGEN 24 MG/DL (7-18); CALCIUM LEVEL 8.6 MG/DL (8.5-10.1); CARBON DIOXIDE LEVEL 25 MEQ/L (21-32); CHLORIDE LEVEL 107 MEQ/L (98-107); GLOMERULAR FILTRATION RATE > 60.0 (>51); GLUCOSE, FASTING 75 MG/DL (70-100); POTASSIUM SERUM 3.8 MEQ/L (3.5-5.1); SODIUM LEVEL 142 MEQ/L (136-145); TOTAL PROTEIN 6.9 GM/DL (6.4-8.2)
[2018-08-24 12:42] LABS: HEPATITIS B SURFACE ANTIGEN NEGATIVE (NEGATIVE)
[2018-08-24 13:09] LABS: HEPATITIS C VIRUS ABY INDEX 0.1 INDEX (<0.8)
[2018-08-24 13:10] LABS: HEPATITIS B CORE ANTIBODY IGM NEGATIVE (NEGATIVE); HIV 1&2 SCREEN CENTAUR NEGATIVE (NEGATIVE)
[2018-08-24 13:11] LABS: HEPATITIS A ANTIBODY IGM NEGATIVE (NEGATIVE)
[2018-08-26 15:09] LABS: QuantiFERON-TB Gold Plus Negative (Negative)
== END ==
LOC: M SFHCPLAZ 09:17
DX: Z51.81 Encounter for therapeutic drug level monitoring (principal); Z79.899 Other long term (current) drug therapy
CPT/HCPCS: 80053

== ENCOUNTER → 2018-10-12 | Outpatient (REF) | payer OTHER ==
[~2018-10-12] MED LIST changes: +COLA100C5 PO; +FOLI1TAB11 PO; -FOLI1TAB4 PO; +METH2.5T48 PO; -METH2.5TA PO
[2018-10-12 11:43] LABS: BLOOD UREA NITROGEN 21 MG/DL (7-18); CALCIUM LEVEL 8.7 MG/DL (8.5-10.1); CARBON DIOXIDE LEVEL 27 MEQ/L (21-32); CHLORIDE LEVEL 108 MEQ/L (98-107); CHOLESTEROL LEVEL 179 MG/DL (<200); CHOLESTEROL RISK RATIO 2.324 (<5); CREATININE FOR GFR 0.87 MG/DL (0.55-1.30); GLOMERULAR FILTRATION RATE > 60.0 (>51); GLUCOSE, FASTING 87 MG/DL (70-100); HDL CHOLESTEROL 77 MG/DL (>40); LDL CHOLESTEROL 91 MG/DL (<100); NON-HDL-C 102 MG/DL; SODIUM LEVEL 142 MEQ/L (136-145); TRIGLYCERIDES LEVEL 56 MG/DL (<150)
[2018-10-15 07:43] LABS: VITAMIN B12 LEVEL 686 PG/ML (232-1245)
== END ==
LOC: M SFHCPLAZ 09:32
PROVIDERS: ATTEND Nurse Practitioner Family
DX: Z13.220 Encounter for screening for lipoid disorders (principal); G62.9 Polyneuropathy, unspecified; Z68.38 Body mass index [BMI] 38.0-38.9, adult

== ENCOUNTER → 2018-10-25 | Outpatient (CLI) | payer BC ==
--- NOTE | 2018-10-25 10:02 | REPMRS ---
Patient History The patient states she has not had a clinical breast exam in over a year. No known family history of cancer. Digital Woman Screen Mammo: October 25, 2018 - Exam #: [id number] Bilateral CC and MLO view(s) were taken. Technologist: Samara Logan, Technologist Prior study comparison: November 02, 2017, bilateral digital mammo screening bilat, performed at [facility]. November 01, 2016, bilateral digital mammo screening bilat, performed at [facility]. October 30, 2015, bilateral digital mammo screening bilat, performed at [facility]. FINDINGS: There are scattered fibroglandular densities. There are densely calcified benign nodules again seen, one on each side. There has been no change in the appearance of the mammogram from the prior studies. There is a mild amount of scattered fibroglandular density which is fairly symmetric. There is no interval development of dominant mass, architectural distortion, or clustered microcalcification suggestive of malignancy. 3-D tomosynthesis shows no additional findings. Assessment: BI-RADS/ACR category 2 mammogram. Benign Findings. Recommendation Routine screening mammogram of both breasts in 1 year (for women over age 40). This patient's Lifetime Breast Cancer RIsk is estimated at 8.4 %. This mammogram was interpreted with the aid of an FDA-approved computer-aided dectection system. Electronically Signed By: Carmelo Koo MD 10/25/18 1002
== END ==
LOC: M WHC 07:56
PROVIDERS: ATTEND Nurse Practitioner Family
DX: Z12.31 Encounter for screening mammogram for malignant neoplasm of breast (principal)

== ENCOUNTER → 2018-11-21 | Outpatient (REF) | payer OTHER | LOC: M SFHCPLAZ 08:02 | PROVIDERS: ATTEND Dermatology | DX: Z79.899 Other long term (current) drug therapy (principal) ==

== ENCOUNTER 2019-05-03 08:08 | Emergency (ER) | payer BC, OTHER ==
[~2019-05-03] VITALS: Ht 170.2 cm; Wt 104.5 kg
[2019-05-03 08:08] VITALS: BP 175/92
[2019-05-03] MEDS ORDERED: HUMI20KI SC (08:12)
[2019-05-03] MEDS ORDERED: MORPHINE 4 MG/ML 1ML VIAL/SYRINGE (J2270) IV ONE (08:30)
[2019-05-03] MEDS ORDERED: NS 1,000 ML IV ONE (08:30)
[2019-05-03] MEDS ORDERED: ONDANSETRON 4MG/2ML VIAL (J2405) IV ONE (08:30)
[2019-05-03 08:50] LABS: BASO # 0.1 10^3/uL (0.0-0.2); EOS # 0.4 10^3/uL (0.0-0.50); EOS % 3.2 % (0.0-3.0); HEMATOCRIT 47.4 % (36.0-47.0); LYMPH # 3.2 10^3/uL (1.5-4.5); LYMPH % 26.6 % (24.0-44.0); MEAN CORPUSCULAR HEMOGLOBIN 30.5 pg (27.0-33.0); MEAN CORPUSCULAR HGB CONC 33.8 g/dl (32.0-36.5); MEAN CORPUSCULAR VOLUME 90.3 fl (80.0-96.0); MONO % 8.1 % (0.0-5.0); NEUTROPHILS # 7.3 10^3/uL (1.8-7.7); NEUTROPHILS % 60.8 % (36.0-66.0); PLATELET COUNT, AUTOMATED 294 10^3/uL (150-450); RED BLOOD COUNT 5.25 10^6/uL (4.00-5.40); WHITE BLOOD COUNT 12.1 10^3/uL (4.0-10.0)
[2019-05-03 09:21] LABS: ALBUMIN 4.3 GM/DL (3.2-5.2); ALT/SGPT 20 U/L (12-78); AMYLASE 69 U/L (25-115); BILIRUBIN,DIRECT 0.1 MG/DL (0.0-0.2); BILIRUBIN,TOTAL 0.3 MG/DL (0.2-1.0); BLOOD UREA NITROGEN 12 MG/DL (7-18); CALCIUM LEVEL 9.3 MG/DL (8.5-10.1); CARBON DIOXIDE LEVEL 27 MEQ/L (21-32); CHLORIDE LEVEL 106 MEQ/L (98-107); CREATININE FOR GFR 0.96 MG/DL (0.55-1.30); GLOMERULAR FILTRATION RATE > 60.0 (>51); GLUCOSE, FASTING 107 MG/DL (70-100); LIPASE 259 U/L (73-393); POTASSIUM SERUM 3.7 MEQ/L (3.5-5.1); SODIUM LEVEL 141 MEQ/L (136-145); TOTAL PROTEIN 7.4 GM/DL (6.4-8.2)
[2019-05-03] MEDS ORDERED: ISOVUE-370 76% 100ML VIAL (Q9967) As Ordered ONE (09:31)
--- NOTE | 2019-05-03 10:46 | REP ---
REASON FOR EXAM: Leukocytosis and epigastric pain. COMPARISON: 10/01/2016 CONTRAST: 100 mL Isovue 370. The lung bases are clear. The liver, gallbladder, spleen, pancreas adrenal glands, and kidneys are within normal limits. The abdominal aorta and para-aortic regions are within normal limits. There are a few scattered mildly dilated small bowel loops in the abdomen. No oral bowel preparatory contrast was administered prior to the exam limiting evaluation of the bowel loops. There is no evidence of free fluid or free air. There is no evidence of an intra-abdominal mass or adenopathy. CT PELVIS: There is no evidence of a pelvic mass or adenopathy. The pelvic bowel loops are within normal limits with the exception of fluid-filled small bowel loops as seen in the abdomen. There is a trace amount of free pelvic fluid. The amount of fluid seen in the pelvis is significantly less than what was seen on the prior exam. There is no pelvic mass or adenopathy. Bone window technique throughout the exam shows the osseous structures to be stable and intact. IMPRESSION: Fluid-filled mildly dilated small bowel loops in the abdomen and pelvis and seen in conjunction with a small amount of free pelvic fluid and a small amount of fluid trapped in the leaves of the pelvic small bowel loops. A mild ileus is suspected. Gastroenteritis cannot be ruled out. Electronically Signed by Nakul Miguel DO 05/03/2019 02:13 P
[2019-05-03] MEDS ORDERED: CIPR-249 PO (10:56)
[2019-05-03] MEDS ORDERED: FLAG500T PO (10:56)
[2019-05-03] MEDS ORDERED: ONDA4TAB6 PO (10:56)
== END 2019-05-03 11:06 | disposition home or self-care (01) ==
LOC: M ED 08:08
DX: K52.9 Noninfective gastroenteritis and colitis, unspecified (principal); K56.7 Ileus, unspecified; Z87.891 Personal history of nicotine dependence
CPT/HCPCS: 74177; 80048; 80076; 82150; 83690; 85025; 96374; 96375; 99284; J2270; J2405; Q9967

== ENCOUNTER → 2019-07-04 | Outpatient (REF) | payer OTHER ==
[~2019-07-04] MED LIST changes: +CIPR-249 PO; +FLAG500T PO; +HUMI20KI SC; +ONDA4TAB6 PO
== END ==
LOC: M SFHCPLAZ 14:07
PROVIDERS: ATTEND Dermatology
DX: Z79.899 Other long term (current) drug therapy (principal)

== ENCOUNTER → 2019-09-02 | Outpatient (CLI) | payer OTHER ==
[2019-09-02 14:05] LABS: ALT/SGPT 22 U/L (12-78); BILIRUBIN,TOTAL 0.5 MG/DL (0.2-1.0); BLOOD UREA NITROGEN 16 MG/DL (7-18); CALCIUM LEVEL 9.1 MG/DL (8.5-10.1); CARBON DIOXIDE LEVEL 31 MEQ/L (21-32); CHLORIDE LEVEL 106 MEQ/L (98-107); CHOLESTEROL LEVEL 228 MG/DL (<200); CHOLESTEROL RISK RATIO 1.948 (<5); CREATININE FOR GFR 0.93 MG/DL (0.55-1.30); FREE T4 1.12 NG/DL (0.76-1.46); GLOMERULAR FILTRATION RATE > 60.0 (>51); GLUCOSE, FASTING 90 MG/DL (70-100); HDL CHOLESTEROL 117 MG/DL (>40); LDL CHOLESTEROL 97 MG/DL (<100); NON-HDL-C 111 MG/DL; POTASSIUM SERUM 4.4 MEQ/L (3.5-5.1); SODIUM LEVEL 142 MEQ/L (136-145); TOTAL PROTEIN 7.5 GM/DL (6.4-8.2); TRIGLYCERIDES LEVEL 69 MG/DL (<150)
[2019-09-02 14:07] LABS: TOTAL 25(OH) VITAMIN D 20.9 NG/ML (30.0-100.0)
== END ==
LOC: M PLALAB 09:56
PROVIDERS: ATTEND Physician Assistant
DX: Z13.220 Encounter for screening for lipoid disorders (principal); E55.9 Vitamin D deficiency, unspecified; R60.0 Localized edema; Z86.39 Personal history of other endocrine, nutritional and metabolic disease

== ENCOUNTER → 2019-10-16 | Outpatient (CLI) | payer BC, OTHER ==
--- NOTE | 2019-10-16 13:56 | REP ---
MRI RIGHT ANKLE: TECHNIQUE: Sagittal proton density, STIR, axial proton density fat sat, T1, coronal proton density, STIR. The Achilles, anterior tibial, posterior tibial, flexor hallucis longus, flexor digitorum longus and peroneal tendons are all intact without evidence of tenosynovitis. The anterior and posterior talofibular, calcaneofibular and deltoid ligaments appears intact. There is ill-defined high signal on T2-weighted images involving the proximal plantar tendon near the insertion onto the inferior calcaneus compatible with tendinitis. There is surrounding ill-defined soft tissue edema compatible with mild plantar fasciitis. No ganglion cyst is seen. No abnormal signal is seen in the sinus tarsi. There is a normal amount of joint fluid. There is ill-defined nonspecific subcutaneous soft tissue edema diffusely. No abnormal bone marrow signal is seen. There is no bone marrow edema or occult fracture. No osteochondral defect is seen at the talar dome. IMPRESSION: No evidence of tendon or ligament tear. There does appear to be plantar tendinitis at the insertion onto the inferior calcaneus with associated mild plantar fasciitis in this region. Nonspecific subcutaneous soft tissue edema about the ankle. Electronically Signed by Mariano Olvera MD 10/16/2019 11:06 P
== END ==
LOC: M RAD 09:36
PROVIDERS: ATTEND Orthopaedic Surgery
DX: M25.579 Pain in unspecified ankle and joints of unspecified foot (principal); M72.2 Plantar fascial fibromatosis

== ENCOUNTER → 2019-11-05 | Outpatient (CLI) | payer BC, OTHER ==
--- NOTE | 2019-11-05 13:44 | REPMRS ---
Patient History The patient states she had a clinical breast exam in 2019. No known family history of cancer. Benign excisional biopsy of the left breast, 2010. Digital Woman Screen Mammo: November 05, 2019 - Exam #: [id number] Bilateral CC and MLO view(s) were taken. Technologist: Katy Price, Technologist Prior study comparison: October 25, 2018, bilateral digital woman screen mammo performed at [facility]. November 02, 2017, bilateral digital mammo screening bilat, performed at [facility]. November 01, 2016, bilateral digital mammo screening bilat, performed at [facility]. FINDINGS: There are scattered fibroglandular densities. There are stable benign noncalcified fibroadenomas one in each breast unchanged. There has been no change in the appearance of the mammogram from the prior studies. There is a mild amount of scattered fibroglandular density which is fairly symmetric. There is no interval development of dominant mass, architectural distortion, or grouped microcalcification suggestive of malignancy. 3-D tomosynthesis shows no additional findings. Assessment: BI-RADS/ACR category 2 mammogram. Benign Findings. Recommendation Routine screening mammogram of both breasts in 1 year (for women over age 40). This patient's Lifetime Breast Cancer Risk is estimated at 8.2 %. This mammogram was interpreted with the aid of an FDA-approved computer-aided dectection system. Electronically Signed By: Carmelo Koo MD 11/05/19 [id number]
== END ==
LOC: M WHC 11:49
PROVIDERS: ATTEND Physician Assistant
DX: Z12.31 Encounter for screening mammogram for malignant neoplasm of breast (principal); Z86.018 Personal history of other benign neoplasm; D24.1 Benign neoplasm of right breast; D24.2 Benign neoplasm of left breast

== ENCOUNTER → 2019-11-07 | Outpatient (CLI) | payer BC, OTHER ==
--- NOTE | 2019-11-07 22:38 | ECHO ---
DATE OF PROCEDURE: 11/07/2019 Date of : 1970 Age: 49 REFERRING PHYSICIAN: Dr. Vee Montoya PATIENT LOCATION: Outpatient. REASON FOR STUDY: Abnormal EKG. 2D MEASUREMENTS: IVS: 1.1 cm LV: 4.8 cm LVPW: 1.0 cm LA: 3.7 cm Aorta: 2.7 cm IVC: 1.4 cm DOPPLER MEASUREMENTS: Peak velocity across the aortic valve: 1.4 m/s Peak velocity across the LVOT: 1.2 m/s Mitral E: 0.67, Mitral A: 0.97 with a ratio of 0.7 Maximum tricuspid valve velocity: 2.1 m/s 2D COMMENTS: 1. Normal left ventricular size, wall thickness, and normal global left ventricular systolic function. The estimated ventricular systolic ejection fraction is 60-65%. 2. Normal left atrium. Normal right atrium and right ventricle. 3. The atrial septum appeared to be normal without evidence of defect or shunt. 4. Normal aortic root. 5. No pericardial effusion seen. 6. Mildly calcified aortic valve with normal leaflet excursion. No mitral valve, tricuspid valve, and pulmonic valve. The proximal pulmonary artery branches also appeared to be normal in size. 7. The inferior vena cava was normal in size, central venous pressure is most likely normal. DOPPLER: It detects mild aortic regurgitation, trace mitral regurgitation, trace tricuspid regurgitation. The calculated pulmonary artery systolic pressure is normal. Peak velocity across the tricuspid valve was 2.1 m/s. IMPRESSION: 1. Normal global left ventricular systolic function. Not mentioned above, abnormal relaxation pattern was noted across the mitral valve leaflets as well as mitral valve annulus consistent with features of grade 1 left ventricular diastolic dysfunction. 2. Aortic valve sclerosis with mild aortic regurgitation, but no aortic stenosis. 3. Trace mitral regurgitation. 4. Trace tricuspid regurgitation with a normal calculated pulmonary artery systolic pressure. [facility]
== END ==
LOC: M CARPUL 13:32
PROVIDERS: ATTEND Family Medicine
DX: I34.0 Nonrheumatic mitral (valve) insufficiency (principal); I36.1 Nonrheumatic tricuspid (valve) insufficiency; R94.31 Abnormal electrocardiogram [ECG] [EKG]

== ENCOUNTER → 2019-11-07 | Outpatient (REF) | payer OTHER ==
[2019-11-07 13:24] LABS: BLOOD UREA NITROGEN 18 MG/DL (7-18); CALCIUM LEVEL 9.6 MG/DL (8.5-10.1); CARBON DIOXIDE LEVEL 29 MEQ/L (21-32); CHLORIDE LEVEL 104 MEQ/L (98-107); CREATININE FOR GFR 0.96 MG/DL (0.55-1.30); GLOMERULAR FILTRATION RATE > 60.0 (>51); GLUCOSE, FASTING 96 MG/DL (70-100); SODIUM LEVEL 139 MEQ/L (136-145)
== END ==
LOC: M SFHCPLAZ 11:08
PROVIDERS: ATTEND Family Medicine
DX: Z01.818 Encounter for other preprocedural examination (principal)

== ENCOUNTER 2019-12-02 11:12 | Emergency (ER) | payer BC, OTHER ==
[~2019-12-02] VITALS: Ht 167.6 cm; Wt 117.0 kg
[2019-12-02] MEDS ORDERED: ASPIRIN (11:21)
[2019-12-02] MEDS ORDERED: KEFL500C17 PO (12:22)
[2019-12-02 12:34] VITALS: BP 166/90
== END 2019-12-02 12:36 | disposition home or self-care (01) ==
LOC: M ED 11:12
DX: L03.115 Cellulitis of right lower limb (principal); T88.9XXA Complication of surgical and medical care, unspecified, initial encounter; X58.XXXA Exposure to other specified factors, initial encounter; Y92.89 Other specified places as the place of occurrence of the external cause; Z87.891 Personal history of nicotine dependence

== ENCOUNTER 2020-01-08 13:56 | Emergency (ER) | payer BC, OTHER ==
[~2020-01-08] VITALS: Ht 167.6 cm; Wt 123.5 kg
[2020-01-08 13:56] VITALS: BP 147/67
[~2020-01-08 13:56] MED LIST changes: +ASPIRIN; +KEFL500C17 PO
[2020-01-08] MEDS ORDERED: ACET650T15 PO (14:05)
[2020-01-08] MEDS ORDERED: HYDR-3713 PO (14:05)
[2020-01-08] MEDS ORDERED: NAPR-885 PO (14:05)
[2020-01-08] MEDS ORDERED: PERC5TAB12 PO (14:05)
[2020-01-08] MEDS ORDERED: IBUP-1022 PO (14:05)
[2020-01-08] MEDS ORDERED: FURO40TA2 PO (14:05)
[2020-01-08] MEDS ORDERED: NAPR-837 PO (14:32)
== END 2020-01-08 14:44 | disposition home or self-care (01) ==
LOC: M ED 13:56
DX: M25.562 Pain in left knee (principal); Z90.49 Acquired absence of other specified parts of digestive tract

== ENCOUNTER → 2020-02-22 | Outpatient (CLI) | payer BC, OTHER ==
[~2020-02-22] MED LIST changes: +ACET650T15 PO; +FURO40TA2 PO; +HYDR-3713 PO; +IBUP-1022 PO; +NAPR-837 PO; +NAPR-885 PO; +PERC5TAB12 PO
== END ==
LOC: M LABSMTC 09:54
PROVIDERS: ATTEND Anesthesiology
DX: Z01.818 Encounter for other preprocedural examination (principal); Z11.59 Encounter for screening for other viral diseases
CPT/HCPCS: C9803; U0003

== ENCOUNTER → 2020-02-24 | Outpatient (CLI) | payer BC, OTHER ==
[2020-02-24 17:46] LABS: HEMATOCRIT 45.9 % (36.0-47.0); HEMOGLOBIN 15.2 g/dl (12.0-15.5); MEAN CORPUSCULAR HEMOGLOBIN 31.3 pg (27.0-33.0); MEAN CORPUSCULAR HGB CONC 33.1 g/dl (32.0-36.5); MEAN CORPUSCULAR VOLUME 94.6 fl (80.0-96.0); PLATELET COUNT, AUTOMATED 234 10^3/uL (150-450); RED BLOOD COUNT 4.85 10^6/uL (4.00-5.40); WHITE BLOOD COUNT 10.1 10^3/uL (4.0-10.0)
[2020-02-24 17:47] LABS: BLOOD UREA NITROGEN 18 MG/DL (7-18); CALCIUM LEVEL 8.5 MG/DL (8.5-10.1); CARBON DIOXIDE LEVEL 28 MEQ/L (21-32); CHLORIDE LEVEL 107 MEQ/L (98-107); CREATININE FOR GFR 0.88 MG/DL (0.55-1.30); GLOMERULAR FILTRATION RATE > 60.0 (>51); GLUCOSE, FASTING 107 MG/DL (70-100); POTASSIUM SERUM 3.6 MEQ/L (3.5-5.1); SODIUM LEVEL 139 MEQ/L (136-145)
--- NOTE | 2020-02-25 00:36 | ECGEPIP ---
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
== END ==
LOC: M LAB 15:38
PROVIDERS: ATTEND Orthopaedic Surgery
DX: Z01.818 Encounter for other preprocedural examination (principal); M23.309 Other meniscus derangements, unspecified meniscus, unspecified knee

== ENCOUNTER 2020-02-25 14:04 | Day surgery (SDC) | payer BC, OTHER ==
[~2020-02-25] VITALS: Ht 167.6 cm; Wt 120.0 kg
[~2020-02-25 14:04] MED LIST changes: +LR 1,000 ML IV SCH
[2020-02-25] MEDS ORDERED: METOCLOPRAMIDE INJ 10MG/2ML VIAL (J2765 PER 1) As Ordered ONE (16:54)
[2020-02-25] MEDS ORDERED: propofoL 200 MG/20 ML VIAL As Ordered ONE (16:54)
[2020-02-25] MEDS ORDERED: LIDOCAINE 2% 100MG/5ML SDV (FOR ANES.) As Ordered ONE (16:54)
[2020-02-25] MEDS ORDERED: ONDANSETRON 4MG/2ML VIAL As Ordered ONE (16:54)
[2020-02-25] MEDS ORDERED: fentaNYL 100 MCG/2 ML INJECTION (J3010) As Ordered ONE (16:55)
[2020-02-25] MEDS ORDERED: MIDAZOLAM INJ 2MG/2ML VIAL (J2250 PER 1MG) As Ordered ONE (16:56)
[2020-02-25] MEDS ORDERED: BUPIVACAINE HCL 0.5% 30 ML VIAL As Ordered ONE (17:36)
[2020-02-25] MEDS ORDERED: SUGAMMADEX SODIUM 500 MG/5 ML VIAL (BRIDION) As Ordered ONE (18:22)
[2020-02-25] MEDS ORDERED: ONDANSETRON 4MG/2ML VIAL IV PRN (18:45)
[2020-02-25] MEDS ORDERED: LR 1,000 ML IV SCH ×2 (18:45)
[2020-02-25] MEDS ORDERED: fentaNYL 100 MCG/2 ML INJECTION (J3010) IV PRN (18:45)
[2020-02-25] MEDS ORDERED: oxyCODONE 5MG TAB PO PRN (18:45)
[2020-02-25 19:15] VITALS: BP 144/84
[2020-02-26] MEDS ORDERED: ASPIRIN 325 MG TAB PO SCH (09:00)
--- NOTE | 2020-02-28 21:16 | RO ---
DATE OF PROCEDURE: 02/25/2020 PREOPERATIVE DIAGNOSES: 1. Left knee medial meniscus tear. 2. Left knee osteoarthritis. POSTOPERATIVE DIAGNOSES 1. Left knee medial meniscus tear. 2. Left knee osteoarthritis. PROCEDURE: 1. Left knee arthroscopy with partial medial meniscectomy. 2. Left knee arthroscopic chondroplasty and synovectomy. SURGEON: Dr. Cheko Jackson SUPERVISOR CELL ROOM: None. ANESTHESIA: General. IV FLUIDS: Lactated Ringer's. ESTIMATED BLOOD LOSS: 5 mL. CLOSURE: Nylon. DESCRIPTION OF PROCEDURE: Patient identified in the preoperative holding area. The left leg was marked by myself. No IV antibiotics indicated. After being positioned on the operating room (OR) table, all bony prominences were well padded and general anesthesia was induced. Exam under anesthesia revealed range of motion from 0 to 125 degrees limited by body habitus. Mild medial compartment instability to valgus stress testing. Patella was stable. A well-padded tourniquet was applied to the thigh. The left leg was then prepped and draped in the normal sterile fashion with Chloraprep. Prior to incision, time-out performed per hospital protocol. The left leg was exsanguinated with an Esmarch bandage, tourniquet inflated to 300 mmHg. An anterolateral portal was localized with a spinal needle and a portal made with #11-blade, 30-degree arthroscope introduced into the joint. Diagnostic arthroscopy carried out revealing moderate synovitis in the anterior compartment extending to a small medial synovial plica. There was mild patellofemoral arthritis. There was moderate diffuse synovitis. Medial compartment was entered where there was diffuse grade II and III chondral changes in the medial femoral condyle, grade II in the medial tibial plateau. There is a macerated tear in the body of posterior horn of the medial meniscus. Anterior cruciate ligament (ACL) was intact. Leg was brought to figure-four position where there were no meniscus tears. Grade I chondromalacia. An anteromedial portal was created under direct visualization, and on probing the medial meniscus, the tear was unstable. I performed a partial medial meniscectomy using a combination of meniscal punches and shaver. This was debrided back to a stable rim. The root was stable. The posterior horn I removed approximately 25% of posterior horn, body removed about 50%. At the very mid point of the meniscus, the tear approached the capsule. The anterior horn was then balanced out. I switched arthroscopy portals getting a better angle to anterior horn to avoid an acute angle. A chondroplasty was performed to the medial femoral condyle with a shaver. On probing of the lateral meniscus, there was no tearing. The knee was brought into full extension, and then I debrided the plica and some of the synovitis medially. The knee was irrigated and drained. All remaining medial meniscus tissue was stable on probing. Portals were closed with nylon suture. I then injected 20 mL of 0.50% Marcaine without epinephrine. Tourniquet was let down. Excellent reperfusion. Bulky sterile dressing applied. She was extubated, transferred to the post-anesthesia care unit (PACU) in stable condition. Complications: None
== END 2020-02-25 19:42 | disposition home or self-care (01) ==
LOC: M SDC 14:04
PROVIDERS: ATTEND Orthopaedic Surgery
DX: M23.204 Derangement of unspecified medial meniscus due to old tear or injury, left knee (principal); M17.12 Unilateral primary osteoarthritis, left knee; R60.0 Localized edema; R12 Heartburn; L40.9 Psoriasis, unspecified; Z87.891 Personal history of nicotine dependence; Z79.899 Other long term (current) drug therapy
CPT/HCPCS: 29881; J2250; J2405; J2765; J3010

== ENCOUNTER → 2020-07-15 | Outpatient (CLI) | payer BC, OTHER ==
[~2020-07-15] MED LIST changes: -LR 1,000 ML IV SCH
== END ==
LOC: M LAB 14:43
PROVIDERS: ATTEND Dermatology
DX: Z51.81 Encounter for therapeutic drug level monitoring (principal); Z79.899 Other long term (current) drug therapy

== ENCOUNTER → 2021-01-25 | Outpatient (REF) | payer OTHER ==
[2021-01-25 13:55] LABS: HEMATOCRIT 49.8 % (36.0-47.0); HEMOGLOBIN 17.1 g/dl (12.0-15.5); MEAN CORPUSCULAR HEMOGLOBIN 32.2 pg (27.0-33.0); MEAN CORPUSCULAR HGB CONC 34.3 g/dl (32.0-36.5); MEAN CORPUSCULAR VOLUME 93.8 fl (80.0-96.0); PLATELET COUNT, AUTOMATED 306 10^3/uL (150-450); RED BLOOD COUNT 5.31 10^6/uL (4.00-5.40); WHITE BLOOD COUNT 13.1 10^3/uL (4.0-10.0)
[2021-01-25 14:31] LABS: ALBUMIN 3.7 GM/DL (3.2-5.2); ALT/SGPT 24 U/L (12-78); BILIRUBIN,TOTAL 0.4 MG/DL (0.2-1.0); BLOOD UREA NITROGEN 18 MG/DL (7-18); CALCIUM LEVEL 8.9 MG/DL (8.5-10.1); CARBON DIOXIDE LEVEL 28 MEQ/L (21-32); CHLORIDE LEVEL 107 MEQ/L (98-107); CHOLESTEROL LEVEL 208 MG/DL (<200); GLOMERULAR FILTRATION RATE > 60.0 (>51); GLUCOSE, FASTING 88 MG/DL (70-100); HDL CHOLESTEROL 74 MG/DL (>40); LDL CHOLESTEROL 107 MG/DL (<100); NON-HDL-C 134 MG/DL; SODIUM LEVEL 141 MEQ/L (136-145); TOTAL PROTEIN 7.1 GM/DL (6.4-8.2); TRIGLYCERIDES LEVEL 134 MG/DL (<150)
[2021-01-25 14:33] LABS: TOTAL 25(OH) VITAMIN D 29.1 NG/ML (30.0-100.0)
== END ==
LOC: M SFHCPLAZ 11:36
PROVIDERS: ATTEND Physician Assistant
DX: K21.9 Gastro-esophageal reflux disease without esophagitis (principal); E55.9 Vitamin D deficiency, unspecified; Z86.39 Personal history of other endocrine, nutritional and metabolic disease; Z13.220 Encounter for screening for lipoid disorders

== ENCOUNTER → 2021-02-10 | Outpatient (CLI) | payer BC ==
--- NOTE | 2021-02-10 12:20 | REPMRS ---
Patient History The patient states she has not had a clinical breast exam in over a year. No known family history of cancer. Benign excisional biopsy of the left breast, 2010. 10 lb intentional weight loss. No vaccines. Patient states no breast complaints today. Patient has signed MRS History Sheet. Digital Woman Screen Mammo: February 10, 2021 - Exam #: [id number] Bilateral CC and MLO view(s) were taken. Technologist: RT Malika Prior study comparison: November 05, 2019, bilateral digital woman screen mammo performed at [facility]. October 25, 2018, bilateral digital woman screen mammo performed at [facility]. November 02, 2017, bilateral digital mammo screening bilat, performed at [facility]. FINDINGS: There are scattered fibroglandular densities. The Volpara volumetric breast density category is:B. There has been no change in the appearance of the mammogram from the prior studies. There is a mild amount of scattered fibroglandular density which is fairly symmetric. There is no interval development of dominant mass, architectural distortion, or grouped microcalcification suggestive of malignancy. 3-D tomosynthesis shows no additional findings. Assessment: BI-RADS/ACR category 1 mammogram. Negative Mammogram. Recommendation Routine screening mammogram of both breasts in 1 year (for women over age 40). This patient's [facility] Lifetime Breast Cancer Risk is estimated at 7.9 %. This mammogram was interpreted with the aid of an FDA-approved computer-aided dectection system. Electronically Signed By: Carmelo Koo MD 02/10/21 [id number]
== END ==
LOC: M WHC 10:28
PROVIDERS: ATTEND Physician Assistant
DX: Z12.31 Encounter for screening mammogram for malignant neoplasm of breast (principal); Z86.018 Personal history of other benign neoplasm

== ENCOUNTER → 2021-07-14 | Outpatient (REF) | payer OTHER | LOC: M SFHCDERM 08:51 | PROVIDERS: ATTEND Physician Assistant | DX: Z53.9 Procedure and treatment not carried out, unspecified reason (principal) ==

== ENCOUNTER → 2021-07-21 | Outpatient (CLI) | payer OTHER | LOC: M PLALAB 10:06 | PROVIDERS: ATTEND Physician Assistant | DX: Z79.899 Other long term (current) drug therapy (principal) ==

== ENCOUNTER 2021-09-21 12:53 | Emergency (ER) | payer BC, OTHER ==
[~2021-09-21] VITALS: Ht 170.2 cm; Wt 105.0 kg
[2021-09-21] MEDS ORDERED: KETOROLAC 30 MG/ML 1ML VIAL IV ONE (19:25)
--- NOTE | 2021-09-21 19:48 | REP ---
INDICATION: left sided chest pain, COMPARISON: 10/02/2016. TECHNIQUE: PA/Lateral FINDINGS: Patient appears rotated on the PA view. There is haziness overlying the left hemithorax which could possibly represent left upper lobe ground-glass infiltrate. Heart is normal in size. The mediastinal silhouette is unremarkable. The visualized osseous structures appear intact. IMPRESSION: Possible ground-glass left upper lobe infiltrate versus artifact. <Electronically signed by Mariano Olvera > 09/21/21 1946
[2021-09-21 19:50] LABS: BASO # 0.1 10^3/uL (0.0-0.2); BASO % 0.6 % (0.0-1.0); EOS # 0.2 10^3/uL (0.0-0.5); EOS % 1.4 % (0.0-3.0); HEMATOCRIT 48.6 % (36.0-47.0); HEMOGLOBIN 16.7 g/dl (12.0-15.5); LYMPH # 3.7 10^3/uL (1.5-5.0); LYMPH % 22.8 % (24.0-44.0); MEAN CORPUSCULAR HEMOGLOBIN 31.6 pg (27.0-33.0); MEAN CORPUSCULAR HGB CONC 34.4 g/dl (32.0-36.5); MEAN CORPUSCULAR VOLUME 91.9 fl (80.0-96.0); MONO % 9.9 % (2.0-8.0); NEUTROPHILS # 10.4 10^3/uL (1.5-8.5); NEUTROPHILS % 64.7 % (36.0-66.0); PLATELET COUNT, AUTOMATED 354 10^3/uL (150-450); RED BLOOD COUNT 5.29 10^6/uL (4.00-5.40)
[2021-09-21 20:16] LABS: BLOOD UREA NITROGEN 21 MG/DL (7-18); C REACTIVE PROTEIN QUANTITATIV 0.82 MG/DL (0.00-0.30); CALCIUM LEVEL 9.5 MG/DL (8.5-10.1); CARBON DIOXIDE LEVEL 27 MEQ/L (21-32); CHLORIDE LEVEL 107 MEQ/L (98-107); CREATININE FOR GFR 0.94 MG/DL (0.55-1.30); GLOMERULAR FILTRATION RATE > 60.0 (>51); GLUCOSE, FASTING 113 MG/DL (70-100); POTASSIUM SERUM 3.8 MEQ/L (3.5-5.1); SODIUM LEVEL 142 MEQ/L (136-145)
[2021-09-21 20:26] LABS: MONO # 1.6 10^3/uL (0.0-0.8)
[2021-09-21 20:27] LABS: ERYTHROCYTE SEDIMENTATION RATE 9 mm/hr (0-30)
[2021-09-21] MEDS ORDERED: NS 1,000 ML IV ONE (20:35)
[2021-09-21] MEDS ORDERED: cefTRIAXone SOD 1 GM in D5W MINI-BAG PLUS 50 ML IV ONE (21:55)
[2021-09-21] MEDS ORDERED: ISOVUE-370 76% 100ML VIAL As Ordered ONE (22:18)
--- NOTE | 2021-09-21 22:57 | REPVR ---
PROCEDURE INFORMATION: Exam: CTA Chest With Contrast Exam date and time: 09/21/2021 10:22 PM Age: 51 years old Clinical indication: Other: Sob/cp TECHNIQUE: Imaging protocol: Computed tomographic angiography of the chest with contrast. 3D rendering (Not supervised by radiologist): MIP and/or 3D reconstructed images were created by the technologist. Radiation optimization: All CT scans at this facility use at least one of these dose optimization techniques: automated exposure control; mA and/or kV adjustment per patient size (includes targeted exams where dose is matched to clinical indication); or iterative reconstruction. Contrast material: ISOVUE 370; Contrast volume: 75 ml; Contrast route: INTRAVENOUS (IV); COMPARISON: CR Chest, 2 view PA, Lat 09/21/2021 7:27 PM FINDINGS: Pulmonary arteries: The main pulmonary artery measures 20 mm. No pulmonary embolism is identified. Aorta: The ascending thoracic aorta measures 25 mm. Lungs: Minimal dependent atelectasis. Pleural spaces: Unremarkable. No pneumothorax. No pleural effusion. Heart: Unremarkable. No cardiomegaly. No pericardial effusion. Lymph nodes: Unremarkable. No enlarged lymph nodes. Bones/joints: Unremarkable. No acute fracture. Soft tissues: Unremarkable. IMPRESSION: Negative CTA chest. No pulmonary embolism is identified. Electronically signed by: Rocael Proctor On 09/21/2021 22:56:40 PM
[2021-09-21] MEDS: AZITHROMYCIN INJ 500 MG, VIAL MATE ADAPTER 1 EACH in NS 250 ML IV ONE ×2 (23:00→23:49)
[2021-09-22] MEDS ORDERED: DOXY-342 PO (00:38)
[2021-09-22] MEDS ORDERED: VENTAER INH (00:40)
--- NOTE | 2021-09-22 01:11 | ECGEPIP ---
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
[2021-09-22 01:12] VITALS: BP 140/90
== END 2021-09-22 01:15 | disposition home or self-care (01) ==
LOC: M ED 12:53
DX: J18.9 Pneumonia, unspecified organism (principal); I50.9 Heart failure, unspecified; L40.9 Psoriasis, unspecified; K21.9 Gastro-esophageal reflux disease without esophagitis; Z79.899 Other long term (current) drug therapy
CPT/HCPCS: 71046; 71275; 80048; 84484; 85025; 85379; 85652; 86140; 87040; 87798; 93005; 96361; 96365; 96367; 96375; 99284; J0456; J0696; J1885; Q9967

== ENCOUNTER 2021-10-27 06:35 | Emergency (ER) | payer BC, OTHER ==
[~2021-10-27] VITALS: Ht 167.6 cm; Wt 97.7 kg
[2021-10-27 06:35] VITALS: BP 136/71
[~2021-10-27 06:35] MED LIST changes: +DOXY-342 PO; +VENTAER INH
[2021-10-27 08:40] LABS: BASO # 0.1 10^3/uL (0.0-0.2); BASO % 0.8 % (0.0-1.0); EOS # 0.2 10^3/uL (0.0-0.5); EOS % 1.5 % (0.0-3.0); HEMATOCRIT 47.1 % (36.0-47.0); HEMOGLOBIN 15.7 g/dl (12.0-15.5); LYMPH # 2.6 10^3/uL (1.5-5.0); LYMPH % 23.9 % (24.0-44.0); MEAN CORPUSCULAR HEMOGLOBIN 31.2 pg (27.0-33.0); MEAN CORPUSCULAR HGB CONC 33.3 g/dl (32.0-36.5); MEAN CORPUSCULAR VOLUME 93.5 fl (80.0-96.0); MONO % 9.3 % (2.0-8.0); NEUTROPHILS # 6.9 10^3/uL (1.5-8.5); NEUTROPHILS % 63.9 % (36.0-66.0); PLATELET COUNT, AUTOMATED 290 10^3/uL (150-450); RED BLOOD COUNT 5.04 10^6/uL (4.00-5.40); WHITE BLOOD COUNT 10.9 10^3/uL (4.0-10.0)
[2021-10-27 09:08] LABS: ERYTHROCYTE SEDIMENTATION RATE 6 mm/hr (0-30)
[2021-10-27 09:11] LABS: ALBUMIN 3.8 GM/DL (3.2-5.2); ALT/SGPT 21 U/L (12-78); BILIRUBIN,DIRECT < 0.1 MG/DL (0.0-0.2); BILIRUBIN,TOTAL 0.5 MG/DL (0.2-1.0); BLOOD UREA NITROGEN 15 MG/DL (7-18); C REACTIVE PROTEIN QUANTITATIV 0.64 MG/DL (0.00-0.30); CARBON DIOXIDE LEVEL 26 MEQ/L (21-32); CHLORIDE LEVEL 108 MEQ/L (98-107); GLOMERULAR FILTRATION RATE > 60.0 (>51); GLUCOSE, FASTING 84 MG/DL (70-100); LIPASE 94 U/L (73-393); POTASSIUM SERUM 5.1 MEQ/L (3.5-5.1); SODIUM LEVEL 140 MEQ/L (136-145); TOTAL PROTEIN 7.2 GM/DL (6.4-8.2)
[2021-10-27 10:39] LABS: CK-MB VALUE MASS < 1.0 NG/ML (<3.6); CPK CREATINE PHOSPHOKINASE 77 U/L (26-192)
[2021-10-27] MEDS ORDERED: LIDOCAINE 5% (LIDODERM) PATCH TD ONE (11:10)
[2021-10-27] MEDS ORDERED: KETOROLAC 30 MG/ML 1ML VIAL IV ONE (11:10)
[2021-10-27] MEDS ORDERED: ASPE4PAD TOP (11:54)
[2021-10-27] MEDS ORDERED: NAPR-837 PO (11:54)
[2021-10-27] MEDS ORDERED: METH-1165 PO (11:54)
[2021-10-27] MEDS ORDERED: **NOTE PATIENT COMMENT** MISC XX ONE (21:00)
== END 2021-10-27 12:13 | disposition home or self-care (01) ==
LOC: M ED 06:35
DX: R07.89 Other chest pain (principal); R05.9 Cough, unspecified; I50.9 Heart failure, unspecified; Z79.899 Other long term (current) drug therapy
CPT/HCPCS: 71046; 80048; 80076; 81001; 82550; 82553; 83605; 83690; 84484; 85025; 85379; 85652; 86140; 93005; 96374; 99284; J1885

== ENCOUNTER → 2021-11-18 | Outpatient (CLI) | payer BC, OTHER ==
[~2021-11-18] MED LIST changes: +ASPE4PAD TOP; +METH-1165 PO
== END ==
LOC: M PLAIMG 10:19
PROVIDERS: ATTEND Physician Assistant
DX: M25.561 Pain in right knee (principal)

== ENCOUNTER → 2022-03-02 | Outpatient (CLI) | payer BC, OTHER ==
[2022-03-02 13:24] LABS: BASO # 0.1 10^3/uL (0.0-0.2); BASO % 0.8 % (0.0-1.0); EOS # 0.2 10^3/uL (0.0-0.5); EOS % 2.5 % (0.0-3.0); HEMATOCRIT 43.3 % (36.0-47.0); HEMOGLOBIN 14.6 g/dl (12.0-15.5); LYMPH # 3.2 10^3/uL (1.5-5.0); LYMPH % 35.3 % (24.0-44.0); MEAN CORPUSCULAR HEMOGLOBIN 31.5 pg (27.0-33.0); MEAN CORPUSCULAR HGB CONC 33.7 g/dl (32.0-36.5); MEAN CORPUSCULAR VOLUME 93.5 fl (80.0-96.0); MONO # 0.6 10^3/uL (0.0-0.8); MONO % 6.7 % (2.0-8.0); NEUTROPHILS # 4.9 10^3/uL (1.5-8.5); NEUTROPHILS % 54.3 % (36.0-66.0); PLATELET COUNT, AUTOMATED 306 10^3/uL (150-450); RED BLOOD COUNT 4.63 10^6/uL (4.00-5.40)
[2022-03-02 13:52] LABS: ALBUMIN 3.9 GM/DL (3.2-5.2); ALT/SGPT 27 U/L (12-78); BILIRUBIN,TOTAL 0.3 MG/DL (0.2-1.0); BLOOD UREA NITROGEN 20 MG/DL (7-18); CALCIUM LEVEL 9.8 MG/DL (8.5-10.1); CARBON DIOXIDE LEVEL 26 MEQ/L (21-32); CHLORIDE LEVEL 109 MEQ/L (98-107); CHOLESTEROL LEVEL 197 MG/DL (<200); CHOLESTEROL RISK RATIO 2.984 (<5); FREE T4 0.99 NG/DL (0.76-1.46); GLOMERULAR FILTRATION RATE > 60.0 (>51); GLUCOSE, FASTING 90 MG/DL (70-100); HDL CHOLESTEROL 66 MG/DL (>40); LDL CHOLESTEROL 114 MG/DL (<100); NON-HDL-C 131 MG/DL; POTASSIUM SERUM 3.9 MEQ/L (3.5-5.1); SODIUM LEVEL 141 MEQ/L (136-145); TRIGLYCERIDES LEVEL 86 MG/DL (<150)
[2022-03-02 14:16] LABS: TOTAL 25(OH) VITAMIN D 36.2 NG/ML (30.0-100.0)
== END ==
LOC: M PLALAB 10:55
PROVIDERS: ATTEND Physician Assistant
DX: R60.0 Localized edema (principal); E55.9 Vitamin D deficiency, unspecified; Z68.33 Body mass index [BMI] 33.0-33.9, adult

== ENCOUNTER → 2022-03-31 | Outpatient (CLI) | payer BC, OTHER | LOC: M RAD 12:00 | PROVIDERS: ATTEND Physician Assistant | DX: R60.0 Localized edema (principal) ==

== ENCOUNTER → 2022-08-26 | Outpatient (CLI) | payer BC, OTHER ==
[~2022-08-26] MED LIST changes: -DOXY-342 PO; +DOXY100C81 PO
== END ==
LOC: M LAB 14:15
PROVIDERS: ATTEND Nurse Practitioner Family
DX: L40.9 Psoriasis, unspecified (principal)

== ENCOUNTER 2022-10-22 14:22 | Emergency (ER) | payer BC, OTHER ==
[~2022-10-22] VITALS: Ht 167.6 cm; Wt 86.0 kg
[2022-10-22] MEDS ORDERED: VALT1TAB PO (15:08)
[2022-10-22 15:28] VITALS: BP 134/67
== END 2022-10-22 15:29 | disposition home or self-care (01) ==
LOC: M ED 14:22
DX: B00.89 Other herpesviral infection (principal); I50.9 Heart failure, unspecified; K21.9 Gastro-esophageal reflux disease without esophagitis; F17.200 Nicotine dependence, unspecified, uncomplicated; Z79.899 Other long term (current) drug therapy

== ENCOUNTER 2022-11-18 15:29 | Emergency (ER) | payer BC, OTHER ==
[~2022-11-18] VITALS: Ht 167.6 cm; Wt 86.5 kg
[~2022-11-18 15:29] MED LIST changes: +VALT1TAB PO
[2022-11-18] MEDS ORDERED: MISC (15:37)
[2022-11-18] MEDS ORDERED: LEVOTAB10 PO (16:48)
[2022-11-18] MEDS ORDERED: OMEP-173 PO (16:48)
[2022-11-18 17:54] VITALS: BP 145/61
== END 2022-11-18 17:55 | disposition home or self-care (01) ==
LOC: M ED 15:29
DX: S63.501A Unspecified sprain of right wrist, initial encounter (principal); W01.118A Fall on same level from slipping, tripping and stumbling with subsequent striking against other sharp object, initial encounter; Y99.0 Civilian activity done for income or pay; I50.9 Heart failure, unspecified; K21.9 Gastro-esophageal reflux disease without esophagitis; F17.200 Nicotine dependence, unspecified, uncomplicated; Z79.899 Other long term (current) drug therapy

== ENCOUNTER → 2023-05-23 | Outpatient (REF) | payer BC, OTHER ==
[~2023-05-23] MED LIST changes: -DOXY100C81 PO; +DOXY100C82 PO; +LEVOTAB10 PO; +MISC; +OMEP-173 PO
[2023-05-23 18:53] LABS: ALBUMIN 3.8 G/DL (3.2-5.2); ALKALINE PHOSPHATASE 65 U/L (46-116); ALT/SGPT 17 U/L (7.0-40); AST/SGOT 10 U/L (<34); BILIRUBIN,TOTAL 0.4 MG/DL (0.3-1.2); BLOOD UREA NITROGEN 16 MG/DL (9-23); CALCIUM LEVEL 9.5 MG/DL (8.5-10.1); CARBON DIOXIDE LEVEL 29 MMOL/L (20-31); CHLORIDE LEVEL 106 MMOL/L (98-107); CHOLESTEROL LEVEL 167 MG/DL (<200); CHOLESTEROL RISK RATIO 2.01 (<5); CREATININE FOR GFR 0.85 MG/DL (0.55-1.30); GLOMERULAR FILTRATION RATE > 60.0 (>51); GLUCOSE, FASTING 84 MG/DL (60-100); LDL CHOLESTEROL 66.6 MG/DL (<100); SODIUM LEVEL 142 MMOL/L (136-145); TOTAL PROTEIN 6.6 G/DL (5.7-8.2); TRIGLYCERIDES LEVEL 87 MG/DL (<150)
== END ==
LOC: M SFHCPLAZ 17:12
PROVIDERS: ATTEND Family Medicine
DX: R60.0 Localized edema (principal); E78.5 Hyperlipidemia, unspecified; E05.90 Thyrotoxicosis, unspecified without thyrotoxic crisis or storm

== ENCOUNTER → 2023-08-08 | Outpatient (CLI) | payer BC, OTHER | LOC: M WHC 15:18 | PROVIDERS: ATTEND Family Medicine | DX: Z12.31 Encounter for screening mammogram for malignant neoplasm of breast (principal) ==

== ENCOUNTER → 2023-09-15 | Outpatient (CLI) | payer BC, OTHER | LOC: M LAB 15:19 | PROVIDERS: ATTEND Nurse Practitioner Family | DX: Z79.899 Other long term (current) drug therapy (principal) ==

== ENCOUNTER → 2024-06-28 | Outpatient (REF) | payer BC ==
[~2024-06-28] MED LIST changes: +ONDA-282 PO; -ONDA4TAB6 PO
== END ==
LOC: M SFHCDERM 08:31
PROVIDERS: ATTEND Nurse Practitioner Family
DX: L40.9 Psoriasis, unspecified (principal); Z53.9 Procedure and treatment not carried out, unspecified reason

== ENCOUNTER → 2024-07-06 | Outpatient (CLI) | payer BC ==
[2024-07-09 12:53] LABS: QuantiFERON-TB Gold Plus NEGATIVE (NEGATIVE)
== END ==
LOC: M LAB 08:14
PROVIDERS: ATTEND Family Medicine
DX: L40.9 Psoriasis, unspecified (principal)